=== PATIENT | male | born 1945 | race Caucasian/White ===

== ENCOUNTER 2024-02-26 13:38 | Observation (INO) | payer MEDICARE, OTHER, SELFPAY ==
[2024-02-26] VITALS (7 sets, daily range): BP systolic 103–196; BP diastolic 71–98; PULSE 65–75; RESP 18; TEMP 36.6–36.8; O2SAT 90–98; BMI 25.0; BMI 25.1
--- NOTE | 2024-02-26 14:06 | ED_ITS ---
Discharge Plan Disposition Patient Disposition: Admitted Condition: Fair Clinical Impressions Clinical Impression: Adult failure to thrive, Asthenia, Pleural effusion Discharge ED Provider: Lloyd Watson Adult HPI <DAWIT Anne - Last Filed: 02/26/24 18:12> General Chief complaint: Fall Stated complaint: AO 02/20/27, fell, broken ribs, wheezing Time Seen by Provider: 02/26/24 14:06 Mode of Arrival: Wheelchair Source of Information: Patient Limitations: No Limitations Description of Symptoms (Recalled from ER Triage Doc. by RN): Patient states he fell the other day and broke three ribs on the right side. States that they followed up at the [facility] and they said there was no need for a chest tube. Patient states that his home health physical therapy person suggested he come to the ER for evaluation because he had wheezing on the left side. Daughter at bedside states that she is afraid he is going to fall again and that the patient has Parkinson's and feels the patient needs to be admitted somewhere for rehab. History of Present Illness HPI narrative: Patient presents for evaluation of multiple complaints. Patient has past medical history of Parkinson's disease, dementia, stroke, CHF most recently had a fall from standing. He was seen and evaluated at the [facility] in [place] and according to family was only diagnosed with 3 left-sided rib fractures. He had a follow-up appointment with the [facility] yesterday and was not prescribed any type of pain medication. Apparently this is confusion as patient preferred not to take opiates given his comorbidities and according to patient's daughter was marked as a refusal. In any event patient is still having ongoing left-sided pain worse with inspiration. Physical therapy noted today that he heard wheezing on his lung exam. The original fall was onto gravel on the left side. He did not lose consciousness. Other than chest wall pain on the left side patient denies fever chills hemoptysis hematochezia melena nausea vomiting diarrhea. Related Data Home Medications Medication Instructions Recorded Confirmed aspirin 81 mg tablet,delayed 81 mg PO DAILY 02/27/24 02/27/24 release atorvastatin 80 mg tablet 80 mg PO DAILY 02/27/24 02/27/24 carbidopa 25 mg-levodopa 100 mg 1 tab PO TID 02/27/24 02/27/24 tablet cholecalciferol (vitamin D3) 25 25 mcg PO DAILY 02/27/24 02/27/24 mcg (1,000 unit) tablet donepezil 10 mg tablet 10 mg PO DAILY 02/27/24 02/27/24 doxepin 25 mg capsule 25 mg PO HS 02/27/24 02/27/24 duloxetine 60 mg capsule,delayed 60 mg PO DAILY 02/27/24 02/27/24 release empagliflozin 5 mg-metformin ER 1 tab PO DAILY 02/27/24 02/27/24 1,000 mg tablet,extended release 24 hr eplerenone 25 mg tablet (Inspra) 25 mg PO DAILY 02/27/24 02/27/24 finasteride 5 mg tablet 5 mg PO DAILY 02/27/24 02/27/24 loratadine 10 mg tablet 10 mg PO DAILYP PRN Allergy 02/27/24 02/27/24 Symptoms magnesium oxide 420 mg tablet 420 mg PO TID 02/27/24 02/27/24 melatonin 3 mg capsule 9 mg PO HS 02/27/24 02/27/24 metoprolol succinate 100 mg 50 mg PO DAILY 02/27/24 02/27/24 tablet,extended release 24 hr pantoprazole 20 mg tablet,delayed 20 mg PO DAILY 02/27/24 02/27/24 release pregabalin 100 mg capsule 100 mg PO HS 02/27/24 02/27/24 tamsulosin 0.4 mg capsule 0.4 mg PO BID 02/27/24 02/27/24 torsemide 20 mg tablet 20 mg PO DAILY 02/27/24 02/27/24 valproic acid 250 mg capsule 500 mg PO DAILY 02/27/24 02/27/24 valproic acid 250 mg capsule 750 mg PO HS 02/27/24 02/27/24 Allergies Allergy/AdvReac Type Severity Reaction Status Date / Time egg AdvReac Diarrhea Verified 02/26/24 20:05 [facility] <DAWIT Anne - Last Filed: 02/26/24 18:12> [facility] Disclaimer: The information contained in this section may have been updated after the patient was seen, as this information can be updated by other users. Medical History (Updated 02/26/24 @ 20:26 by Trini Carcamo RN) History of heart attack (~2000) CVA (cerebral vascular accident) Surgical History (Updated 02/26/24 @ 20:26 by Trini Carcamo, RN) History of open heart surgery Family History (Updated 02/26/24 @ 20:36 by Trini Carcamo, RN) Mother History of open heart surgery Father History of open heart surgery Social History (Updated 02/26/24 @ 20:38 by Trini Carcamo, RN) Smoking Status: Former smoker alcohol intake: never current occupational status: retired Travel in the last 8 weeks: None <DAWIT Anne - Last Filed: 02/26/24 18:12> ROS Obtained: Yes Systems reviewed as appropriate & no additional complaints except as documented Physical Exam <DAWIT Anne - Last Filed: 02/26/24 18:12> General General appearance: alert and in no apparent distress Head Head exam: atraumatic and normal inspection Eye Eye exam: Present normal appearance, PERRL and EOMI ENT ENT exam: Present normal exam, normal oropharynx and mucous membranes moist Neck Neck exam: Present normal inspection and full ROM; Absent trachea midline Chest Chest inspection: Present normal inspection, symmetric chest wall rise and tenderness (Tender to palpation in the left axillary line) Respiratory Respiratory exam: Present normal lung sounds bilaterally; Absent respiratory distress, wheezes, stridor or accessory muscle use Cardiovascular Cardiovascular exam: Present regular rate, normal rhythm, normal heart sounds, +S1 and +S2 Abdominal Exam Abdominal exam: Present soft and normal bowel sounds; Absent tenderness, guarding or rebound Extremities Exam Extremities exam: Present normal inspection and full ROM Back Exam Back exam: Present normal inspection, full ROM and tenderness (Left thoracic paraspinous); Absent vertebral tenderness Neurological Exam Neurological exam: Present alert, oriented X3, CN II-XII intact and other (Patient has resting and intention tremors.); Absent normal gait (Patient has a shuffling gait) Psychiatric Psychiatric exam: Present normal affect and normal mood Skin Skin exam: Present warm, dry and normal color Medical Decision Making <DAWIT Anne - Last Filed: 02/26/24 18:12> Medical Records Medical records reviewed: Yes I reviewed the patient's medical records. Luan Inquiry Pt receiving controlled substance: No Vital Signs: 02/26/24 13:41 02/26/24 14:00 02/26/24 14:11 Temperature 97.8 F Temperature Source Oral Pulse Rate 65 69 Pulse Rate [Radial] 65 Respiratory Rate 18 Blood Pressure 103/71 L Blood Pressure [Right Arm] 104/81 L Blood Pressure Mean Blood Pressure Mean [Right Arm] 88 Blood Pressure Source Blood Pressure Source [Right Arm] Automatic Cuff Blood Pressure Position Blood Pressure Position [Right Arm] Sitting 02 Sat by Pulse Oximetry 94 L 97 98 Oxygen Delivery Method Room Air 02/26/24 17:01 02/26/24 18:01 02/26/24 18:51 Temperature 97.8 F Temperature Source Oral Pulse Rate 69 Pulse Rate [Radial] Respiratory Rate 18 Blood Pressure 175/95 H 196/98 H 196/98 H Blood Pressure [Right Arm] Blood Pressure Mean 134 130 Blood Pressure Mean [Right Arm] Blood Pressure Source Automatic Cuff Blood Pressure Source [Right Arm] Blood Pressure Position Sitting Blood Pressure Position [Right Arm] 02 Sat by Pulse Oximetry Oxygen Delivery Method Room Air Lab Data Lab results reviewed: Yes I reviewed the patient's lab results. Lab Results 02/26/24 14:31: WBC 6.8, RBC 4.32 L, Hgb 12.8 L, Hct 39.7 L, MCV 92.0, MCH 29.5, MCHC 32.1, RDW 15.5, Plt Count 168, MPV 8.9, Neut % (Auto) 75.1, Lymph % (Auto) 13.8, [place] % (Auto) 7.1, Eos % (Auto) 3.3, Baso % (Auto) 0.7, Neut # (Auto) 5.1, Lymph # (Auto) 0.9, [place] # (Auto) 0.5, Eos # (Auto) 0.2, Baso # (Auto) 0.1, PT 10.6, INR 0.94, Sodium 139, Potassium 5.0, Chloride 104, Carbon Dioxide 30, Anion Gap 10.0, BUN 21 H, Creatinine 1.30 H, Estimated Creat Clear 51, Estimated GFR 53 L, Est GFR ( Amer) 64, Glucose 141 H, Calcium 9.3, Magnesium 1.7, Total Bilirubin 0.3, AST 37, ALT 16, Alkaline Phosphatase 70, Troponin I < 0.01, NT-Pro-B Natriuret Pep 803 H, Total Protein 6.5, Albumin 3.6, Globulin 2.9, Albumin/Globulin Ratio 1.2 02/26/24 17:31: Troponin I < 0.01 07/18/24 05:52 02/27/24 05:52 Orders (Tests/Meds): ED MEDICATIONS Generic Name Dose Route Start Last Admin Trade Name Reena PRN Reason Stop Dose Admin Aspirin 81 mg 02/27/24 09:00 Aspirin 81mg Chewable Tablet PO 03/28/24 08:59 DAILY CRISTIANA Atorvastatin Calcium 80 mg 02/26/24 21:00 02/26/24 22:23 Atorvastatin 40mg Tablet PO 03/27/24 20:59 80 mg HS CRISTIANA Administration Carbidopa/Levodopa 1 each 02/26/24 21:00 02/26/24 22:23 Carbidopa/Levodopa 25/100mg Tablet PO 03/27/24 20:59 1 each TID CRISTIANA Administration Donepezil HCl 10 mg 02/26/24 21:00 02/26/24 22:23 Donepezil 10mg Tab PO 03/27/24 20:59 10 mg HS CRISTIANA Administration Heparin Sodium (Porcine) 5,000 unit 02/27/24 09:00 Heparin Sodium 5,000 Unit/Ml Vial SQ 03/28/24 08:59 BID CRISTIANA Insulin Human Lispro 0 unit 02/26/24 21:00 02/26/24 22:36 Humalog 100 Units/Ml 10ml Vial (Ssi) SQ 03/27/24 20:59 2 unit ACHS CRISTIANA Administration Protocol Melatonin 10 mg 02/27/24 07:19 Melatonin 5mg Tablet PO 03/27/24 20:38 HSP PRN Sleep Metoprolol Succinate 50 mg 02/27/24 09:00 Metoprolol Succinate Xl 50mg Tablet PO 03/28/24 08:59 DAILY CRISTIANA Pregabalin 100 mg 02/26/24 21:00 02/26/24 22:24 Pregabalin 100mg Capsule PO 03/27/24 20:59 100 mg HS CRISTIANA Administration Primidone 100 mg 02/26/24 21:00 02/26/24 22:20 Primidone 50mg Tablet PO 03/27/24 20:59 Not Given HS CRISTIANA Tamsulosin HCl 0.4 mg 02/26/24 21:00 02/26/24 22:24 Tamsulosin 0.4mg Capsule PO 03/27/24 20:59 0.4 mg HS CRISTIANA Administration Torsemide 40 mg 02/27/24 09:00 Torsemide 20mg Tablet PO 03/28/24 08:59 DAILY CRISTIANA Discontinued Medications Generic Name Dose Route Start Last Admin Trade Name Freremigio PRN Reason Stop Dose Admin Acetaminophen 1,000 mg 02/26/24 14:16 02/26/24 14:22 Acetaminophen 1,000mg/100ml Vial IV 02/26/24 14:17 1,000 mg ONCE ONE Administration Sodium Chloride 500 mls @ 999 mls/hr 02/26/24 14:16 02/26/24 14:23 Sod Chlor 0.9% 1000ml Bag IV 02/26/24 14:46 Not Given .Q31M ONE Sodium Chloride 1,000 mls @ 999 mls/hr 02/26/24 14:30 02/26/24 14:23 Sod Chlor 0.9% 1000ml Bag IV 02/26/24 15:30 999 mls/hr .Q1H1M CRISTIANA Administration Iopamidol 185 ml 02/26/24 16:00 02/26/24 16:01 Iopamidol-370 (76%);100ml Bottle IV 02/26/24 16:01 185 ml ONCE ONE Administration Melatonin 10 mg 02/26/24 20:39 02/26/24 22:24 Melatonin 5mg Tablet PO 03/27/24 20:59 10 mg HS PRN Administration Sleep Sodium Chloride 50 ml 02/26/24 16:00 02/26/24 16:01 0.9 % Sodium Chloride 50 Ml Vial IV 02/26/24 16:01 50 ml ONCE ONE Administration Sodium Chloride 10 ml 02/26/24 16:00 02/26/24 16:01 Sodium Chloride 0.9% 10ml Syr (Rad Only) IV 02/26/24 16:01 10 ml ONCE ONE Administration ORDERS Category Date Time Status CT angio abdomen pelvis Stat Cat Scan 02/26/24 14:[address] angio chest - dissection Stat Cat Scan 02/26/24 14:[address] angio head Stat Cat Scan 02/26/24 14:[address] angio neck Stat Cat Scan 02/26/24 14:[address] cervical spine wo con Stat Cat Scan 02/26/24 14:[address] head/brain wo con Stat Cat Scan 02/26/24 14:[address] lumbar spine wo con Stat Cat Scan 02/26/24 14:[address] thoracic spine wo con Stat Cat Scan 02/26/24 14:18 Completed Pulmonology Consult [Consult to Pulmonology] [CONS] Cons 02/26/24 18:12 Active Routine BNP [NT Pro Brain Natriuretic Pep.] Stat Lab 02/26/24 14:31 Completed CBC w/Auto Diff [Complete Blood Count Auto Diff] Stat Lab 02/26/24 14:31 Completed CMP [Comprehensive Metabolic Panel] Stat Lab 02/26/24 14:31 Completed Complete Blood Count Auto Diff AMLAB Lab 02/27/24 05:52 Completed Comprehensive Metabolic Panel AMLAB Lab 02/27/24 05:52 Completed INR [Prothrombin Time INR] Stat Lab 02/26/24 14:31 Completed Magnesium AMLAB Lab 02/27/24 05:52 Completed Magnesium Stat Lab 02/26/24 14:31 Completed Trop I [Troponin I] Stat Lab 02/26/24 14:31 Completed Troponin I Q3H Lab 02/26/24 17:31 Completed Troponin I Q3H Lab 02/26/24 20:45 Completed CA echo doppler complete Routine Y 02/27/24 18:12 Completed Medical Decision Narrative: In summary patient is a 79-year-old male who presents to the emergency department for evaluation of fall, left-sided chest pain, failure to thrive. Patient is slightly hypotensive with a blood pressure of 104/81 but heart rate of 65 respiratory rate is 18 with an O2 sat of 94% on room air upon arrival, afebrile. Physical exam is remarkable for the stigmata of Parkinson's with resting and intention tremors, tenderness to palpation over the left chest wall worse with inspiration, breath sounds are clear and equal bilaterally to the bases without adventitious sounds.. Differential diagnosis includes failure to thrive, PE, hemothorax, lung contusion, occult bony fracture. Initial workup will be conducted with trauma scans, hematologic labs, twelve-lead EKG. Initial interventions include crystalloid bolus Tylenol. Initial workup reviewed by me shows that his hematologic labs are nonactionable however my informal interpretation of all of his imaging shows what appears to be a pleural effusion with some air bubbles but I do not appreciate any rib fractures and radiology confirms that they do not see any rib fractures either. Given this I had interactive discussion with Dr. Blanca about possibly doing a diagnostic paracentesis if warranted. He agreed to evaluate the patient for such in the morning. Given that I had interactive discussion with hospital medicine who agreed to admission for further evaluation. <Lloyd Watson MD - Last Filed: 02/27/24 08:51> Vital Signs: 02/26/24 13:41 02/26/24 14:00 02/26/24 14:11 Temperature 97.8 F Temperature Source Oral Pulse Rate 65 69 Pulse Rate [Radial] 65 Respiratory Rate 18 Blood Pressure 103/71 L Blood Pressure [Right Arm] 104/81 L Blood Pressure Mean Blood Pressure Mean [Right Arm] 88 Blood Pressure Source Blood Pressure Source [Right Arm] Automatic Cuff Blood Pressure Position Blood Pressure Position [Right Arm] Sitting 02 Sat by Pulse Oximetry 94 L 97 98 Oxygen Delivery Method Room Air 02/26/24 17:01 02/26/24 18:01 02/26/24 18:51 Temperature 97.8 F Temperature Source Oral Pulse Rate 69 Pulse Rate [Radial] Respiratory Rate 18 Blood Pressure 175/95 H 196/98 H 196/98 H Blood Pressure [Right Arm] Blood Pressure Mean 134 130 Blood Pressure Mean [Right Arm] Blood Pressure Source Automatic Cuff Blood Pressure Source [Right Arm] Blood Pressure Position Sitting Blood Pressure Position [Right Arm] 02 Sat by Pulse Oximetry Oxygen Delivery Method Room Air Lab Data Lab Results 02/26/24 14:31: WBC 6.8, RBC 4.32 L, Hgb 12.8 L, Hct 39.7 L, MCV 92.0, MCH 29.5, MCHC 32.1, RDW 15.5, Plt Count 168, MPV 8.9, Neut % (Auto) 75.1, Lymph % (Auto) 13.8, [place] % (Auto) 7.1, Eos % (Auto) 3.3, Baso % (Auto) 0.7, Neut # (Auto) 5.1, Lymph # (Auto) 0.9, [place] # (Auto) 0.5, Eos # (Auto) 0.2, Baso # (Auto) 0.1, PT 10.6, INR 0.94, Sodium 139, Potassium 5.0, Chloride 104, Carbon Dioxide 30, Anion Gap 10.0, BUN 21 H, Creatinine 1.30 H, Estimated Creat Clear 51, Estimated GFR 53 L, Est GFR ( Amer) 64, Glucose 141 H, Calcium 9.3, Magnesium 1.7, Total Bilirubin 0.3, AST 37, ALT 16, Alkaline Phosphatase 70, Troponin I < 0.01, NT-Pro-B Natriuret Pep 803 H, Total Protein 6.5, Albumin 3.6, Globulin 2.9, Albumin/Globulin Ratio 1.2 02/26/24 17:31: Troponin I < 0.01 Orders (Tests/Meds): ED MEDICATIONS Generic Name Dose Route Start Last Admin Trade Name Reena PRN Reason Stop Dose Admin Aspirin 81 mg 02/27/24 09:00 Aspirin 81mg Chewable Tablet PO 03/28/24 08:59 DAILY CRISTIANA Atorvastatin Calcium 80 mg 02/26/24 21:00 02/26/24 22:23 Atorvastatin 40mg Tablet PO 03/27/24 20:59 80 mg HS CRISTIANA Administration Carbidopa/Levodopa 1 each 02/26/24 21:00 02/26/24 22:23 Carbidopa/Levodopa 25/100mg Tablet PO 03/27/24 20:59 1 each TID CRISTINAA Administration Donepezil HCl 10 mg 02/26/24 21:00 02/26/24 22:23 Donepezil 10mg Tab PO 03/27/24 20:59 10 mg HS CRISTIANA Administration Heparin Sodium (Porcine) 5,000 unit 02/27/24 09:00 Heparin Sodium 5,000 Unit/Ml Vial SQ 03/28/24 08:59 BID CRISTIANA Insulin Human Lispro 0 unit 02/26/24 21:00 02/26/24 22:36 Humalog 100 Units/Ml 10ml Vial (Ssi) SQ 03/27/24 20:59 2 unit ACHS CRISTIANA Administration Protocol Melatonin 10 mg 02/27/24 07:19 Melatonin 5mg Tablet PO 03/27/24 20:38 HSP PRN Sleep Metoprolol Succinate 50 mg 02/27/24 09:00 Metoprolol Succinate Xl 50mg Tablet PO 03/28/24 08:59 DAILY CRISTIANA Pregabalin 100 mg 02/26/24 21:00 02/26/24 22:24 Pregabalin 100mg Capsule PO 03/27/24 20:59 100 mg HS CRISTIANA Administration Primidone 100 mg 02/26/24 21:00 02/26/24 22:20 Primidone 50mg Tablet PO 03/27/24 20:59 Not Given HS CRISTIANA Tamsulosin HCl 0.4 mg 02/26/24 21:00 02/26/24 22:24 Tamsulosin 0.4mg Capsule PO 03/27/24 20:59 0.4 mg HS CRISTIANA Administration Torsemide 40 mg 02/27/24 09:00 Torsemide 20mg Tablet PO 03/28/24 08:59 DAILY CRISTIANA Discontinued Medications Generic Name Dose Route Start Last Admin Trade Name Freq PRN Reason Stop Dose Admin Acetaminophen 1,000 mg 02/26/24 14:16 02/26/24 14:22 Acetaminophen 1,000mg/100ml Vial IV 02/26/24 14:17 1,000 mg ONCE ONE Administration Sodium Chloride 500 mls @ 999 mls/hr 02/26/24 14:16 02/26/24 14:23 Sod Chlor 0.9% 1000ml Bag IV 02/26/24 14:46 Not Given .Q31M ONE Sodium Chloride 1,000 mls @ 999 mls/hr 02/26/24 14:30 02/26/24 14:23 Sod Chlor 0.9% 1000ml Bag IV 02/26/24 15:30 999 mls/hr .Q1H1M CRISTIANA Administration Iopamidol 185 ml 02/26/24 16:00 02/26/24 16:01 Iopamidol-370 (76%);100ml Bottle IV 02/26/24 16:01 185 ml ONCE ONE Administration Melatonin 10 mg 02/26/24 20:39 02/26/24 22:24 Melatonin 5mg Tablet PO 03/27/24 20:59 10 mg HS PRN Administration Sleep Sodium Chloride 50 ml 02/26/24 16:00 02/26/24 16:01 0.9 % Sodium Chloride 50 Ml Vial IV 02/26/24 16:01 50 ml ONCE ONE Administration Sodium Chloride 10 ml 02/26/24 16:00 02/26/24 16:01 Sodium Chloride 0.9% 10ml Syr (Rad Only) IV 02/26/24 16:01 10 ml ONCE ONE Administration ORDERS Category Date Time Status CT angio abdomen pelvis Stat Cat Scan 02/26/24 14:[address] angio chest - dissection Stat Cat Scan 02/26/24 14:[address] angio head Stat Cat Scan 02/26/24 14:[address] angio neck Stat Cat Scan 02/26/24 14:[address] cervical spine wo con Stat Cat Scan 02/26/24 14:[address] head/brain wo con Stat Cat Scan 02/26/24 14:[address] lumbar spine wo con Stat Cat Scan 02/26/24 14:[address] thoracic spine wo con Stat Cat Scan 02/26/24 14:18 Completed Pulmonology Consult [Consult to Pulmonology] [CONS] Cons 02/26/24 18:12 Active Routine BNP [NT Pro Brain Natriuretic Pep.] Stat Lab 02/26/24 14:31 Completed CBC w/Auto Diff [Complete Blood Count Auto Diff] Stat Lab 02/26/24 14:31 Completed CMP [Comprehensive Metabolic Panel] Stat Lab 02/26/24 14:31 Completed Complete Blood Count Auto Diff AMLAB Lab 02/27/24 05:52 Completed Comprehensive Metabolic Panel AMLAB Lab 02/27/24 05:52 Completed INR [Prothrombin Time INR] Stat Lab 02/26/24 14:31 Completed Magnesium AMLAB Lab 02/27/24 05:52 Completed Magnesium Stat Lab 02/26/24 14:31 Completed Trop I [Troponin I] Stat Lab 02/26/24 14:31 Completed Troponin I Q3H Lab 02/26/24 17:31 Completed Troponin I Q3H Lab 02/26/24 20:45 Completed CA echo doppler complete Routine Y 02/27/24 18:12 Completed Medical Decision Narrative: In summary patient is a 79-year-old male who presents to the emergency department for evaluation of fall, left-sided chest pain, failure to thrive. Patient is slightly hypotensive with a blood pressure of 104/81 but heart rate of 65 respiratory rate is 18 with an O2 sat of 94% on room air upon arrival, afebrile. Physical exam is remarkable for the stigmata of Parkinson's with resting and intention tremors, tenderness to palpation over the left chest wall worse with inspiration, breath sounds are clear and equal bilaterally to the bases without adventitious sounds.. Differential diagnosis includes failure to thrive, PE, hemothorax, lung contusion, occult bony fracture. Initial workup will be conducted with trauma scans, hematologic labs, twelve-lead EKG. Initial interventions include crystalloid bolus Tylenol. Initial workup reviewed by me shows that his hematologic labs are nonactionable however my informal interpretation of all of his imaging shows what appears to be a pleural effusion with some air bubbles but I do not appreciate any rib fractures and radiology confirms that they do not see any rib fractures either. Given this I had interactive discussion with Dr. Blanca about possibly doing a diagnostic paracentesis if warranted. He agreed to evaluate the patient for such in the morning. Given that I had interactive discussion with hospital medicine who agreed to admission for further evaluation. I was consulted by the VIJAY, and we discussed the complexity of the problems being addressed.I approved the treatment and management plan for this patient?s care in the Emergency Department, thus performing a substantive portion of the medical decision making.Signed, Lloyd Watson MD Critical Care <DAWIT Anne - Last Filed: 02/26/24 18:12> Critical Care Time Critical Care Time: No
--- NOTE | 2024-02-26 14:18 | CT_ITS ---
FINAL REPORT TECHNIQUE: Thin section axial images were obtained through the thoracic spine without contrast. Sagittal and coronal images were obtained from the axial data. CLINICAL HISTORY: trauma, critical injury suspected COMPARISON: None FINDINGS: There is a compression deformity of T4 favored to be chronic. There are mild compression deformities of T8 and T9 also likely chronic. There is multilevel degenerative disc disease. No acute fracture. A left pleural effusion is noted. There is no acute paraspinal abnormality. IMPRESSION: No acute abnormality. Multilevel degenerative disc disease. Chronic compression deformities. Reviewed, Interpreted and Dictated by Chiquis Conde MD Transcribed by Nicky Chin Authenticated and [facility]
--- NOTE | 2024-02-26 14:18 | CT_ITS ---
FINAL REPORT TECHNIQUE: Thin section axial images were obtained from skull base to vertex without contrast. Coronal reconstruction images were obtained from the axial data. Exam was performed using dose reduction technique. CLINICAL HISTORY: trauma, critical injury suspected FINDINGS: There is age-appropriate atrophy. There is no mass effect or midline shift. There is no intracranial hemorrhage. There is no hydrocephalus. Periventricular low density is likely related to changes of chronic small vessel ischemia. There are multiple areas of encephalomalacia consistent with old infarcts. The posterior fossa is without acute abnormality. The soft tissues are without acute abnormality. No acute osseous abnormality is identified. IMPRESSION: No acute intracranial hemorrhage. Atrophy and changes suggesting chronic small vessel ischemia. Multiple old infarcts. Reviewed, Interpreted and Dictated by Chiquis Conde MD Transcribed by Mitzi Snyder Authenticated and . [facility]
--- NOTE | 2024-02-26 14:18 | CT_ITS ---
FINAL REPORT TECHNIQUE: Pre-and postcontrast images of the abdomen and pelvis were performed by computed tomography. Extensive 3-D reconstruction images were performed. A CTA was performed. This study was performed with techniques to keep radiation doses as low as reasonably achievable (ALARA). Individualized dose reduction techniques using automated exposure control or adjustment of mA and/or kV according to the patient''s size were employed. CLINICAL HISTORY: trauma, critical injury suspected COMPARISON: None FINDINGS: ABDOMEN AND PELVIS:: The liver, spleen, pancreas, and adrenal glands are unremarkable. There are gallstones present in the gallbladder. There are hypodense bilateral renal lesions, favor renal cysts. The appendix is not visualized. There are no secondary signs of appendicitis. No bowel abnormality is identified. No free fluid is visualized. CTA: The overall examination is somewhat limited in the abdomen and pelvis secondary to the bolus timing. The abdominal aorta is enlarged, with an intrarenal abdominal aortic aneurysm measuring 3.6 cm in diameter. No gross evidence of a dissection is seen. There is no significant stenosis or calcification. The renal arteries are not well-visualized but are bilaterally patent. IMPRESSION: The timing of the bolus makes evaluation of a dissection somewhat difficult but no gross dissection is seen. An infrarenal 3.6 cm abdominal aortic aneurysm is present. No gross vascular abnormality is noted, and the major abdominal vessels are all patent. Gallstones are present in the gallbladder. Reviewed, Interpreted and Dictated by Chiquis Conde MD Transcribed by Katya Dugan Authenticated and . [facility]
--- NOTE | 2024-02-26 14:18 | CT_ITS ---
FINAL REPORT TECHNIQUE: Axial images were performed through the lumbar spine by computed tomography. Sagittal reconstruction images were also performed. This study was performed with techniques to keep radiation doses as low as reasonably achievable, (ALARA). Individualized dose reduction techniques using automated exposure control or adjustment of mA and/or kV according to the patient''s size were employed. CLINICAL HISTORY: trauma, critical injury suspected COMPARISON: None FINDINGS: No acute fracture. No abnormal alignment. There is advanced multilevel degenerative disc disease. Vertebral body heights are preserved. No acute paraspinal soft tissue abnormality. IMPRESSION: No acute fracture. Reviewed, Interpreted and Dictated by Chiquis Conde MD Transcribed by DAWIT Phelan Authenticated and [facility]
--- NOTE | 2024-02-26 14:18 | CT_ITS ---
FINAL REPORT TECHNIQUE: Thin section axial images were obtained through the cervical spine without contrast. Multiplanar reconstruction images were obtained from the axial data. Exam was performed using dose reduction techniques. CLINICAL HISTORY: trauma, critical injury suspected COMPARISON: None FINDINGS: There is no acute fracture. There is no evidence of unilateral or bilateral facet lock. The craniocervical junction is intact. There is multilevel degenerative disc disease, most pronounced at C5-6 and C6-7.. No acute paraspinal abnormality is identified. IMPRESSION: No acute fracture. Degenerative disc disease. Reviewed, Interpreted and Dictated by Chiquis Conde MD Transcribed by Nicky Chin Authenticated and [facility]
--- NOTE | 2024-02-26 14:18 | CT_ITS ---
FINAL REPORT TECHNIQUE: Axial imaging of the chest is obtained after the administration of contrast. 3-D MIP reformatted images were also obtained and reviewed per PE protocol. CLINICAL HISTORY: trauma, critical injury suspected COMPARISON: None FINDINGS: The pulmonary arteries are well filled. There is no evidence of pulmonary embolus. There is no aortic dissection or intimal flap. There is dilation of the ascending thoracic aorta, measuring 4.2 cm in diameter. There is an aberrant right subclavian artery, a normal variant. The heart is borderline in size. There is no mediastinal, hilar, or axillary lymphadenopathy. Changes of emphysema are present. Bilateral lower lobe atelectasis is also present. A moderate size left pleural effusion is noted. There is a focus of air in or adjacent to the effusion, which could represent a small hydropneumothorax or a bulla in the left lower lobe, especially given the lack of a rib fracture. No acute osseous abnormality. Specifically, no rib fracture is identified. IMPRESSION: No evidence of pulmonary embolism or aortic dissection. The ascending thoracic aorta is dilated to 4.2 cm. There is a moderate left pleural effusion with an air collection within or adjacent to the effusion. While this could represent a small hydropneumothorax, given that no rib fractures are present may also represent a bulla in the left lower lobe immediately anterior to the pleural fluid collection. Reviewed, Interpreted and Dictated by Chiquis Conde MD Transcribed by Katya Dugan Authenticated and [facility]
--- NOTE | 2024-02-26 14:18 | CT_ITS ---
FINAL REPORT TECHNIQUE: Thin section axial images are obtained through the brain after intravenous contrast injection. Multiplanar reconstructions were obtained from the axial data. Exam was performed using dose reduction technique per the ALARA principal. CLINICAL HISTORY: trauma, critical injury suspected COMPARISON: None FINDINGS: The intracerebral portions of the carotid arteries are patent. The anterior and middle cerebral arteries are patent. The basilar artery is patent. The left vertebral artery is dominant. The posterior cerebral arteries arise from the basilar artery. [place] is intact. There is no significant stenosis, aneurysm, or AVM. IMPRESSION: Unremarkable CT angiogram of the intracerebral vasculature. Reviewed, Interpreted and Dictated by Chiquis Conde MD Transcribed by DAWTI Phelan Authenticated and [facility]
--- NOTE | 2024-02-26 14:18 | CT_ITS ---
FINAL REPORT TECHNIQUE: Thin-section axial CT with IV contrast supplemented with multi planar reconstruction under CT angiogram protocol was performed of the neck. This study was performed technique to keep radiation doses as low as reasonably achievable, (ALARA). NASCET criteria was utilized during interpretation. CLINICAL HISTORY: trauma, critical injury suspected COMPARISON: None FINDINGS: Aortic arch: There is an aberrant right subclavian artery. Arch shows no significant narrowing. Great vessel origins are widely patent. Right carotid: No significant stenosis is seen at the cervical common or internal carotid artery. Left carotid: There is calcified plaque at the carotid bulb and proximal right ICA. No significant stenosis, vessel are patent to the skull base. Vertebrals: The left vertebral artery is small, likely congenital. No significant stenosis is present. IMPRESSION: No evidence of significant stenosis or major branch occlusion. Reviewed, Interpreted and Dictated by Chiquis Conde MD Transcribed by DAWIT Phelan Authenticated and [facility]
--- NOTE | 2024-02-26 14:18 | PC.NURSE ---
Emerita in [facility] notified that pt and family is wanting to speak about placement for rehab
[2024-02-26] MEDS: ACETAMINOPHEN 1,000MG/100ML VIAL 1000 MG IV (14:22)
[2024-02-26] MEDS: 0.9 % SODIUM CHLORIDE 1000ML 1,000 ML 999 ML IV (14:23)
--- NOTE | 2024-02-26 14:32 | ECG_ITS ---
APPROVED REPORT Exam: Resting ECG HR:63 bpm ECG Measurements Heart Rate 63 AXES MO 176 P 78 QRSd 95 QRS -70 QT 418 T 106 QTc 425 Conclusion SINUS RHYTHM WITH OCCASIONAL SUPRAVENTRICULAR PREMATURE COMPLEXES LOW QRS VOLTAGE IN PRECORDIAL LEADS [QRS DEFLECTION < 1.0 mV IN CHEST LEADS] PATTERN CONSISTENT WITH PULMONARY DISEASE POSSIBLE RIGHT VENTRICULAR CONDUCTION DELAY [RSR (QR) IN V1/V2] ABNORMAL ECG Electronically signed by : STEF MORROW, 02/27/2024 04:35:06
[2024-02-26 14:41] LABS: Basophils # 0.1 K/mm3 (0-0.2); Basophils % 0.7 % (0.1-2.0); Eosinophils # 0.2 K/mm3 (0.0-0.4); Eosinophils % 3.3 % (0.1-12.0); Hematocrit 39.7 % (42.0-52.0); Hemoglobin 12.8 g/dL (14.1-18.0); Lymphocytes # 0.9 K/mm3 (0.7-4.5); Lymphocytes % 13.8 % (10-50); Mean Corpuscular HGB Conc 32.1 g/dL (31.8-35.4); Mean Corpuscular Hemoglobin 29.5 pg (27.0-31.2); Mean Platelet Volume 8.9 fl (7.4-10.4); Monocytes # 0.5 K/mm3 (0.1-1.0); Monocytes % 7.1 % (1.7-9.3); Neutrophils # 5.1 K/mm3 (1.8-7.8); Neutrophils % 75.1 % (37.0-80.0); Platelet Count 168 K/mm3 (142-424); Red Blood Count 4.32 M/mm3 (4.60-6.20); Red Cell Distribution Width 15.5 % (11.5-17.5); White Blood Count 6.8 K/mm3 (4.8-10.8)
--- NOTE | 2024-02-26 14:41 | PC.NURSE ---
DAYANA Felder at discussing rehab with pt and family
[2024-02-26 14:44] LABS: Chloride 104 mmol/L (98-107); Sodium 139 mmol/L (136-145)
[2024-02-26 14:46] LABS: Alanine Aminotransferase 16 U/L (12-78); Blood Urea Nitrogen 21 mg/dl (9-20); Creatinine Clearance Estimated 51 mL/min (50-200); Estimated Glomerular Filt Rate 53 ml/min (>60); GFR (African American) 64 ML/MIN (>60)
[2024-02-26 14:47] LABS: Albumin Level 3.6 g/dl (3.5-5.0); Albumin/Globulin Ratio 1.2 (1.1-1.8); Alkaline Phosphatase 70 U/L (38-126); Aspartate Amino Transferase 37 U/L (17-59); Bilirubin,Total 0.3 mg/dl (0.2-1.3); Calcium 9.3 mg/dl (8.4-10.2); Carbon Dioxide 30 mmol/L (22.0-30.0); Globulin 2.9 g/dL (1.3-3.2); Glucose 141 mg/dl (74-100); Magnesium 1.7 mg/dl (1.6-2.3); Total Protein,Serum 6.5 g/dl (6.3-8.2)
[2024-02-26 14:49] LABS: INR 0.94 (0.9-1.1); Prothrombin Time 10.6 seconds (10.1-12.5)
[2024-02-26 14:57] LABS: NT Pro Brain Natriuretic Pep. 803 pg/mL (0-450)
[2024-02-26 15:02] LABS: Troponin I < 0.01 ng/ml (0.00-0.034)
--- NOTE | 2024-02-26 15:02 | PC.NURSE ---
PT aware of evaluation
--- NOTE | 2024-02-26 15:33 | CARE MANAGER ---
Addendum entered by Sunitha Tillman 02/28/24 13:55: I spoke w/ patient's daughter this AM regarding [facility] facility: they reached out to daughter and stated they should have a bed for patient within the next two weeks. Addendum entered by Sunitha Tillman 02/27/24 15:49: Per patient/family request information has been faxed to [facility] in [place]. I have also left a voicemail w/ Domi Ricky Hu. Addendum entered by Sunitha Tillman 02/27/24 14:52: The plan for this patient is to discharge home w/ family today while awaiting LTC. Patient and family are both agreeable to this plan. I will update patient's Hepatology Physician at [facility] (Jay) regarding situation and ask that he continue to follow up w/ patient and discharge planning. I have provided patient and his family w/ my name and number for future questions. I am still waiting for a call back from [facility] at this time. I have provided patient/family with a list of facilities w/ [facility]. Addendum entered by Sunitha Tillman 02/27/24 08:45: Patient information has been faxed to [facility] per daughter's request. Addendum entered by Caroline Gallardo RN 02/26/24 16:02: Discussed with EVIE Lee, patient's status. He states in order to qualify for short term rehab he needs a qualifying stay same as Medicare guidelines. The [facility] can cover a LTC facility. The patient and family don't really want LTC but understand this is an option and does not mean he has to stay there forever if he chooses not to. I spoke with the provider as well at [facility]. She states they offered admission to patient yesterday due to hemo pneumothorax and at that time he did not want to be admitted (earlier daughter and patient state he did not refuse admit). Called to ER to verify they were aware of what the [facility] saw yesterday. Discussed with Jay the daughter's concerns for the caregiver from [facility] and the inability to help him pull his pants up. EVIE Molina spoke with patient's daughter and explained that he would need to go LTC for [place] to pay, but that we would wait until the ER had finished working him up to see if he needed to be admitted. If he does we will discuss discharge plans in the morning and if he isn't admitted we will touch base with them over the phone. Daughter/patient agreeable. Original Note: Went to ER and spoke with patient and daughter. Patient currently resides with daughter and [facility] stays with patient while daughter is at work. His normal caregiver at [facility] is out due to a surgery and the one filling in is unable to lift or help patient much. Patient has been falling recently. He has fractured ribs and hx of Parkinson's. He was recently at [facility]. He also receives home health. The daughter and patient agree that he needs short term rehab. We discussed that he doesn't have a reason to be admitted to the hospital. He is wanting the [place] to pay for this as Medicare will not be able to. [facility] has contracts with different short term rehabs. They have spoke with the social welfare research worker on his [employer] team 16, Jay Barry. He instructed them to take the patient to whatever ER they wished as his home health physical therapist recommended patient needing short term rehab. I have left a message for Jay Barry and will fax PT/OT evals to them. The daughter is also reaching out to him. The plan is to take him home and stay in touch with [facility] as they should be able to help with placement. MARIPOSA Desai
--- NOTE | 2024-02-26 15:38 | HMH.PTEV ---
Physical Therapy Evaluation Rehab PT IP Evaluation Start: 02/26/24 15:02 Freq: ONCE Status: Active Protocol: Document 02/26/24 15:25 JAMIL (Rec: 02/26/24 15:36 JAMIL [email or web address]) Subjective/History History History Per H&P: Patient presents for evaluation of multiple complaints. Patient has past medical history of Parkinson's disease, dementia, stroke, CHF most recently had a fall from standing. He was seen and evaluated at the [facility] in [place] and according to family was only diagnosed with 3 left-sided rib fractures. He had a follow-up appointment with the [facility] yesterday and was not prescribed any type of pain medication. Apparently this is confusion as patient preferred not to take opiates given his comorbidities and according to patient's daughter was marked as a refusal. In any event patient is still having ongoing left- sided pain worse with inspiration. Physical therapy noted today that he heard wheezing on his lung exam. The original fall was onto gravel on the left side. He did not lose consciousness. Other than chest wall pain on the left side patient denies fever chills hemoptysis hematochezia melena nausea vomiting diarrhea. Subjective Subjective PLOF per pt report: Lives with family in a single-story home with ramped enterance. Pt uses a rollator for ambulation and usually requires supervision with mobility d/t reported history of frequent falls and balance deficits. Pt 's daughter has been taking off of her work to care for her father/pt. Pt usually has 2 caregivers that rotate care but one is on leave for a surgery and the other is not able to provide physical assistance. Pt's daughter reports pt would be home alone sometimes d/t this. New diagnosis of cancer in past 12 No months? Rehab PT IP Eval Objective Appearance Patient Behavior Appropriate,Cooperative Patient Orientation Person Difficulty following instructions none Speech Pattern Clear Ambulation Patient Able to Ambulate Yes Ambulation Observation IP General Gait Pattern Observation Wide Based Gait Ambulation Distance (feet) 20 Ambulation Assistive Device Rolling Walker Ambulation Ability Minimal x 1 (25% assist) Balance Ability to Arise Able, uses arms to help Sitting Balance Steady, safe Standing Balance Steady, wide stance Transfers Bed Transfer Ability Minimal x 1 (25% assist) Sit to Stand Bed Transfer Ability Contact Guard/Hand Hold Rehab PT IP prob,goals,plan Problems Date of Evaluation: 02/26/24 PT IP Problems Bed Mobility,Transfers,Gait, Balance,Self care,Safety Rehab Potential Rehab Potential Good Equipment Needs Assistive Devices Rolling / Wheeled Walker Plan PT Intervention Plan Bed Mobility,Transfers,Gait, Balance,Self care,Safety, Therapeutic Exercise Other Intervention Plan 1-2 times PT Plan Frequency Daily Duration LOS Discharge Goals Bed Transfer Ability Contact Guard/Hand Hold Sit to Stand Chair Transfer Ability Supervision/Stand by Ambulation Assistive Device Rolling Walker Ambulation Distance (feet) 30 Discharge Plan PT Discharge Plan Initial physical therapy evaluation performed. Patient presents below baseline at this time in functional mobility, transfers, and strength. Pt required Min A for bed mobility (supine<> sitting) and Min A for steadying during ambulation with RW. Pt not safe to return home at this time d/t current level of functional mobility and lack of 24/7 care (per pt' s daughter's report) being available to pt. PT feels that pt needs 24/7 assistance to prevent falls when performing functional mobility around the home. PT recommending short- term rehabilitation stay upon d/c from [facility]. If pt is unable to attend rehab, pt may return home with 24/7 care and PT services. Eval Complexity Eval Charge Codes 08998 - Moderate Complexity PHYSICIAN CERTIFICATION: I certify the specified therapy services for Sharad Mckeon are required, authorized, and reviewed every 30 days.
--- NOTE | 2024-02-26 15:41 | HMH.OTEV ---
OT Inpatient Evaluation Rehab OT IP Evaluation Start: 02/26/24 15:02 Freq: ONCE Status: Active Protocol: Document 02/26/24 15:37 FLORECITABRYCE (Rec: 02/26/24 15:41 MARY ALICE [id number]) Rehab OT IP Assessment Subjective History Patient presents for evaluation of multiple complaints. Patient has past medical history of Parkinson's disease, dementia, stroke, CHF most recently had a fall from standing. He was seen and evaluated at the [facility] in [place] and according to family was only diagnosed with 3 left-sided rib fractures. He had a follow-up appointment with the [facility] yesterday and was not prescribed any type of pain medication. Apparently this is confusion as patient preferred not to take opiates given his comorbidities and according to patient's daughter was marked as a refusal. In any event patient is still having ongoing left- sided pain worse with inspiration. Physical therapy noted today that he heard wheezing on his lung exam. The original fall was onto gravel on the left side. He did not lose consciousness. Other than chest wall pain on the left side patient denies fever chills hemoptysis hematochezia melena nausea vomiting diarrhea. Patient lives at home in [address] with family. Family is unable to provide care for patient 04/03 at this time. Patient has a hx of falling and would benefit from skilled rehabilitation services prior to returning home. Subjective I can get up. Assisted Patient on safety awareness to complete bed mobiltiy from supine->sit @ EOB->stand->maneuver throughout facility with usage of RW ~20ft. Patient required Min A due to unsteadiness balance. Assisted Patient back to bed with Min A. Objective Patient Orientation Person,Name Right Upper Extremity Gross ROM WFL Left Upper Extremity Gross ROM WFL Bed Mobility bed mobility - supine/sit Assist Level Minimal x 1 (25% assist) Transfer Training Sit/Stand/Pivot Transfer Assist Level Minimal x 1 (25% assist) Chair Transfer Ability Minimal x 1 (25% assist) Chair Transfer Technique Sit to/from Ambulatory Chair Transfer Assistive Devices Rolling Walker Lower Body Dressing Ability Minimal Assistance Rehab OT IP prob,goals,plan Problems Date of Evaluation: 02/26/24 OT IP Problems Bed Mobility,Transfers,Balance ,Self care,Safety Rehab Potential Rehab Potential Good Equipment Needs Assistive Devices Rolling / Wheeled Walker Plan OT intervention Plan Bed Mobility,Transfers,Balance ,Self care,Safety,Therapeutic Exercise OT Plan Frequency Daily Duration LOS Discharge Goals Bed Mobility Ability Assistance x1 Sit to Stand Chair Transfer Ability Contact Guard/Hand Hold Chair Transfer Ability Contact Guard/Hand Hold Chair Transfer Technique Sit to/from Ambulatory Chair Transfer Assistive Devices Rolling Walker Lower Body Dressing Ability Contact Guard Discharge Plan OT Discharge Plan Recommend placement at this time. Continue OT IP services til appropriate d/c. Eval Complexity Eval Charge Codes 36259 - Low Complexity PHYSICIAN CERTIFICATION: I certify the specified therapy services for Sharad Mckeon are required, authorized, and reviewed every 30 days.
[2024-02-26] MEDS: SODIUM CHLORIDE 0.9% 10ML SYR (RAD ONLY) 10 ML IV (16:01)
[2024-02-26] MEDS: IOPAMIDOL-370 (76%);100ML BOTTLE 185 ML IV (16:01)
[2024-02-26] MEDS: 0.9 % SODIUM CHLORIDE 50 ML VIAL IV (16:01)
--- NOTE | 2024-02-26 17:36 | PC.NURSE ---
Rounded on patient. No needs at this time. Resting in bed.
--- NOTE | 2024-02-26 18:17 | PC.NURSE ---
notified house for admission to 2nd floor per hospitalist.
[2024-02-26 18:25] LABS: Troponin I < 0.01 ng/ml (0.00-0.034)
--- NOTE | 2024-02-26 18:34 | PC.NURSE ---
Report given to MARIPOSA Clinton on Med Surg.
--- NOTE | 2024-02-26 18:53 | PC.NURSE ---
pt arrived to floor via wheel chair at this time
--- NOTE | 2024-02-26 19:34 | EXP.HP ---
History of Present Illness *Admission Date: 02/26/24 *Reason for visit:: Fall *History of present illness: Sharad Mckeon is an 79-year-old male past medical history significant for HTN, CAD status post CABG in 2001, CVA with right-sided deficits, CHF who presents emergency room today with complaints of mechanical fall. Mr. Mckeon has had a few falls over the last several weeks. Most recently fell a few days ago onto the left side and has been having some left-sided rib pain. Did not hit his head at that time, denies any LOC, denies neck or back pain. Tells me that he went to the MD and they diagnosed him with 3 left-sided rib fractures. Patient lives at home with his daughter. Tells me that he has to use a rollator walker to get around. Reports he tripped and fell a couple of days ago, did not lose consciousness, no dizziness or lightheadedness noted before the fall. Left-sided rib pain is worse with inspiration. Patient denies any fever, cough, chest pain, abdominal pain. No focal neurodeficits. No recent weight gain or weight loss, no swelling in his legs or feet. Daughter was concerned about patient returning home, reports that he has been getting weaker over the last several weeks and has been unable to complete activities of daily living. Denies tobacco use, alcohol use, illicit drug use. Does not take any blood thinners. Does take a 81 mg aspirin daily. Lab work in the ER showed an elevated BUN and creatinine of 21 and 1.3. BNP elevated to 803. CTA of the chest shows a moderate left pleural effusion. All other imaging was nonactionable.Dr. Blanca was consulted, will see the patient in consult tomorrow to discuss doing a diagnostic thoracentesis if needed. He will be noted to the hospitalist service for severe impaired mobility, adult failure to thrive, and a new pleural effusion. [facility] Disclaimer: The information contained in this section may have been updated after the patient was seen, as this information can be updated by other users. Medical History (Updated 02/27/24 @ 12:11 by Sav Trujillo MD) Dyspnea on exertion History of heart attack (~2000) CVA (cerebral vascular accident) Surgical History (Updated 02/26/24 @ 20:26 by Trini Carcamo RN) History of open heart surgery Family History (Updated 02/26/24 @ 20:36 by Trini Carcamo RN) Mother History of open heart surgery Father History of open heart surgery Social History (Updated 02/26/24 @ 20:38 by Trini Carcamo RN) Smoking Status: Former smoker alcohol intake: never current occupational status: retired Travel in the last 8 weeks: None Meds Home Medications and Allergies Home Medications Medication Instructions Recorded Confirmed Type aspirin 81 mg tablet,delayed 81 mg PO DAILY 02/27/24 02/27/24 History release atorvastatin 80 mg tablet 80 mg PO DAILY 02/27/24 02/27/24 History carbidopa 25 mg-levodopa 100 mg 1 tab PO TID 02/27/24 02/27/24 History tablet cholecalciferol (vitamin D3) 25 25 mcg PO DAILY 02/27/24 02/27/24 History mcg (1,000 unit) tablet donepezil 10 mg tablet 10 mg PO DAILY 02/27/24 02/27/24 History doxepin 25 mg capsule 25 mg PO HS 02/27/24 02/27/24 History duloxetine 60 mg capsule,delayed 60 mg PO DAILY 02/27/24 02/27/24 History release empagliflozin 5 mg-metformin ER 1 tab PO DAILY 02/27/24 02/27/24 History 1,000 mg tablet,extended release 24 hr eplerenone 25 mg tablet (Inspra) 25 mg PO DAILY 02/27/24 02/27/24 History finasteride 5 mg tablet 5 mg PO DAILY 02/27/24 02/27/24 History hydrocodone 5 mg-acetaminophen 325 1 tab PO Q8H PRN pain 3 days #9 02/27/24 Rx mg tablet tabs loratadine 10 mg tablet 10 mg PO DAILYP PRN Allergy 02/27/24 02/27/24 History Symptoms magnesium oxide 420 mg tablet 420 mg PO TID 02/27/24 02/27/24 History melatonin 3 mg capsule 9 mg PO HS 02/27/24 02/27/24 History metoprolol succinate 100 mg 50 mg PO DAILY 02/27/24 02/27/24 History tablet,extended release 24 hr pantoprazole 20 mg tablet,delayed 20 mg PO DAILY 02/27/24 02/27/24 History release pregabalin 100 mg capsule 100 mg PO HS 02/27/24 02/27/24 History primidone 50 mg tablet 75 mg PO HS 02/27/24 02/27/24 History tamsulosin 0.4 mg capsule 0.4 mg PO BID 02/27/24 02/27/24 History torsemide 20 mg tablet 20 mg PO DAILY 02/27/24 02/27/24 History valproic acid 250 mg capsule 500 mg PO DAILY 02/27/24 02/27/24 History valproic acid 250 mg capsule 750 mg PO HS 02/27/24 02/27/24 History New Prescriptions to Start Prescriptions: hydrocodone-acetaminophen Derek Hines Allergies Allergy/AdvReac Type Severity Reaction Status Date / Time egg AdvReac Diarrhea Verified 02/26/24 20:05 Exam Data for Last 24 hours Vital signs and Labs for Last 24 Hours: Temp Pulse Resp BP Pulse Ox O2 Del Method 98.2 F 75 18 170/98 H 90 L Room Air 02/26/24 19:06 02/26/24 19:06 02/26/24 19:06 02/26/24 19:06 02/26/24 19:06 02/26/24 19:06 Laboratory Results - last 24 hr 02/26/24 14:31: WBC 6.8, RBC 4.32 L, Hgb 12.8 L, Hct 39.7 L, MCV 92.0, MCH 29.5, MCHC 32.1, RDW 15.5, Plt Count 168, MPV 8.9, Neut % (Auto) 75.1, Lymph % (Auto) 13.8, [place] % (Auto) 7.1, Eos % (Auto) 3.3, Baso % (Auto) 0.7, Neut # (Auto) 5.1, Lymph # (Auto) 0.9, [place] # (Auto) 0.5, Eos # (Auto) 0.2, Baso # (Auto) 0.1, PT 10.6, INR 0.94, Sodium 139, Potassium 5.0, Chloride 104, Carbon Dioxide 30, Anion Gap 10.0, BUN 21 H, Creatinine 1.30 H, Estimated Creat Clear 51, Estimated GFR 53 L, Est GFR ( Amer) 64, Glucose 141 H, Calcium 9.3, Magnesium 1.7, Total Bilirubin 0.3, AST 37, ALT 16, Alkaline Phosphatase 70, Troponin I < 0.01, NT-Pro-B Natriuret Pep 803 H, Total Protein 6.5, Albumin 3.6, Globulin 2.9, Albumin/Globulin Ratio 1.2 02/26/24 17:31: Troponin I < 0.01 I & O for Last 24 hours: Intake & Output 02/23/24 02/24/24 02/25/24 02/26/24 23:59 23:59 23:59 23:59 Weight 79.464 kg *Routine HEENT Exam Head: Present normocephalic and atraumatic Eye: Present EOMI and PERRL ENT: Present mucous membranes moist *Routine Neck Exam Neck: Present supple and full ROM *Routine Respiratory Exam Respiratory: Present CTA bilaterally *Routine Cardiovascular Exam Cardiovascular: Present RRR, Normal S1 and Normal S2 *Routine Abdominal Exam Abdominal: Present soft and normoactive bowel sounds *Routine Rectal Exam Rectal:: deferred *Routine Genitalia Exam Genitalia:: deferred *Routine Extremities Exam Extremities: Present pulses intact and normal capillary refill *Routine Skin Exam Skin: Present intact *Routine Neurological Exam Neurological: Present alert, oriented X3 and moving all extremities Assessment and Plan *Assessment and plan (1) CAD (coronary artery disease): Status: Acute Category: Medical Code(s): I25.10 - Atherosclerotic heart disease of [place] coronary artery without angina pectoris (2) CHF (congestive heart failure): Status: Acute Category: Medical Code(s): I50.9 - Heart failure, unspecified (3) Pleural effusion: Status: Acute Category: Medical Code(s): J90 - Pleural effusion, not elsewhere classified (4) CKD (chronic kidney disease): Status: Acute Category: Medical Code(s): N18.9 - Chronic kidney disease, unspecified (5) Adult failure to thrive: Status: Acute Category: Medical Code(s): R62.7 - Adult failure to thrive (6) Dementia: Status: Acute Category: Medical Code(s): F03.90 - Unspecified dementia, unspecified severity, without behavioral disturbance, psychotic disturbance, mood disturbance, and anxiety Plan Assessment: This is an 79-year-old male who is being admitted for adult failure to thrive secondary to severe impaired mobility as well as a new pleural effusion. On my exam, patient is lying in bed in no acute distress. No complaints at this time. [facility]. [facility] Severe impaired mobility -Patient is having difficulty completing activities of daily living -Consult PT -Consult case management for discharge planning Pleural effusion -Secondary to CHF? -Dr. Blanca consulted, will see the patient tomorrow to discuss diagnostic thoracentesis versus conservative management -Patient appears euvolemic, will hold off on additional diuretics at this time HFpEF -Last echo done in 05/2023 showed a LVEF of 55% with grade 1 diastolic dysfunction, [facility] as [facility] shows a more recent echo done in November -Pt was taken off of torsemide during last admission 2/2 orthostatic hypotension -Takes eplerenone which we do not have on formulary -1500cc fluid restriction -strick I&Os -TTE pending for the morning CAD s/p CABG in 2001 -Continue aspirin/statin daily -Heart healthy diet Type 2 diabetes -SSI for glycemic control -a1c -carb consistent diet -holding metformin while inpatient Parkinson's Disease Dementia -continue carbidopa/levodopa -continue donepizil CKD stage 3a -Pt is at his baseline creatinine, -avoid nephrotoxic medication -monitor serum BUN/creatinine HTN -Resume home medications where appropriate BPH -continue flomax DVT prophylaxis: Heparin CODE STATUS: Full code Surrogate decision maker: Ashley [phone] Skin: Moderate risk Rounded on patient after nurse practitioner. Personally examined and interviewed patient. Agree with exam findings and care plan as documented.
[2024-02-26 21:14] LABS: Troponin I < 0.01 ng/ml (0.00-0.034)
[2024-02-26] MEDS: CARBIDOPA/LEVODOPA 25/100MG TABLET 1 EACH PO (22:23)
[2024-02-26] MEDS: PAT OWN MED ***DONEPEZIL 10MG 10 MG PO (22:23)
[2024-02-26] MEDS: ATORVASTATIN 40MG TABLET 80 MG PO (22:23)
[2024-02-26] MEDS: TAMSULOSIN 0.4MG CAPSULE 0.4 MG PO (22:24)
[2024-02-26] MEDS: PREGABALIN 100MG CAPSULE 100 MG PO (22:24)
[2024-02-26] MEDS: MELATONIN 5MG TABLET 10 MG PO (22:24)
[2024-02-26] MEDS: humaLOG 100 UNITS/ML 10ML VIAL (SSI) SQ (22:36)
[2024-02-26 22:37] LABS: POC Glucose,Bedside 164 (70-110)
[2024-02-27] VITALS: BP 172/74; PULSE 70; RESP 16; TEMP 36.8; O2SAT 94
[2024-02-27 04:00] VITALS: BMI 25.1
--- NOTE | 2024-02-27 06:22 | PC.NURSE ---
Mr Mckeon was a new admit last night (02/25) at around 18:53. Daughter accompanied patient upon arrival and is his POA. Patient has a history of dementia but has been alert and oriented x4 this shift. Patient was admitted due to failure to thrive. Patient complains of pain during movement or coughing in his left ribs. Patient had multiple falls prior to his shift. Patient has not requested any pain medication or any other pain interventions this shift. He has rested quite well throughout the night. He stated this morning that he felt pretty good and was not feeling as sore as last night. Moderate tremors noticed in patient. Patient requires assistance to the bathroom and voided this shift; patient tolerated ambulation well and used a rolling walker. Patient's FSBS at 21:00 was 164; he received 2 units of Lispro insulin per sliding scale. At 06:00, his FSBS was 82. Patient's med rec was completed this shift; patient received his scheduled meds per OCT. Primidone was not given due to no availability. Patient requests to take melatonin at bedtime to help him sleep. Patient does not have any further complaints at this time. Echo is at bedside. Pulmonology consult ordered for today. Bed alarm is on. Call light is within reach.
[2024-02-27 06:24] LABS: Basophils # 0.1 K/mm3 (0-0.2); Eosinophils # 0.2 K/mm3 (0.0-0.4); Eosinophils % 4.1 % (0.1-12.0); Hematocrit 36.2 % (42.0-52.0); Lymphocytes % 17.8 % (10-50); Mean Corpuscular HGB Conc 33.2 g/dL (31.8-35.4); Mean Corpuscular Hemoglobin 30.1 pg (27.0-31.2); Mean Corpuscular Volume 90.5 fl (80-94); Mean Platelet Volume 8.9 fl (7.4-10.4); Monocytes # 0.5 K/mm3 (0.1-1.0); Monocytes % 9.9 % (1.7-9.3); Neutrophils # 3.7 K/mm3 (1.8-7.8); Neutrophils % 67.1 % (37.0-80.0); Platelet Count 168 K/mm3 (142-424); Red Cell Distribution Width 15.6 % (11.5-17.5); White Blood Count 5.5 K/mm3 (4.8-10.8)
[2024-02-27 06:28] LABS: POC Glucose,Bedside 82 (70-110)
[2024-02-27 06:59] LABS: Alanine Aminotransferase 8 U/L (12-78); Albumin Level 3.3 g/dl (3.5-5.0); Albumin/Globulin Ratio 1.2 (1.1-1.8); Alkaline Phosphatase 66 U/L (38-126); Anion Gap 8.6 mEq/L (5-15); Aspartate Amino Transferase 27 U/L (17-59); Bilirubin,Total 0.4 mg/dl (0.2-1.3); Blood Urea Nitrogen 15 mg/dl (9-20); Calcium 9.2 mg/dl (8.4-10.2); Carbon Dioxide 32 mmol/L (22.0-30.0); Chloride 103 mmol/L (98-107); Creatinine Clearance Estimated 66 mL/min (50-200); Estimated Glomerular Filt Rate 72 ml/min (>60); GFR (African American) 87 ML/MIN (>60); Globulin 2.7 g/dL (1.3-3.2); Glucose 95 mg/dl (74-100); Magnesium 1.6 mg/dl (1.6-2.3); Potassium 4.6 mmoL/L (3.5-5.1); Sodium 139 mmol/L (136-145)
[2024-02-27 08:00] VITALS: BP 135/72; PULSE 75; RESP 17; TEMP 36.6; O2SAT 90
--- NOTE | 2024-02-27 08:02 | EXP.ACUTE.PN ---
Subjective *Date: 02/27/24 *Time: 08:02 Medical Exam Vital signs and Labs for Last 24 Hours: Vital Signs Temp Pulse Pulse Resp BP BP Pulse Ox 02/27/24 06:45 02/27/24 05:00 02/27/24 03:00 02/27/24 01:00 02/27/24 00:00 98.3 F 70 16 172/74 H 94 L 02/26/24 23:00 02/26/24 21:00 02/26/24 20:00 02/26/24 19:06 98.2 F 75 18 170/98 H 90 L 02/26/24 19:00 02/26/24 18:51 97.8 F 69 18 196/98 H 02/26/24 18:01 196/98 H 02/26/24 17:01 175/95 H 02/26/24 14:11 69 103/71 L 98 02/26/24 14:00 65 97 02/26/24 13:41 97.8 F 65 18 104/81 L 94 L O2 Del Method 02/27/24 06:45 Room Air 02/27/24 05:00 Room Air 02/27/24 03:00 Room Air 02/27/24 01:00 Room Air 02/27/24 00:00 Room Air 02/26/24 23:00 Room Air 02/26/24 21:00 Room Air 02/26/24 20:00 Room Air 02/26/24 19:06 Room Air 02/26/24 19:00 Room Air 02/26/24 18:51 Room Air 02/26/24 18:01 02/26/24 17:01 02/26/24 14:11 02/26/24 14:00 02/26/24 13:41 Room Air Intake and Output 02/26/24 02/27/24 02/27/24 23:59 07:59 15:59 Intake Total 100 / 100 Output Total 0 / 0 0 / 0 Balance 0 / 100 100 / 100 Intake: Intake, Oral Amount 100 / 100 Output: Output, Urine Amount 0 / 0 0 / 0 Other: Number of Unmeasured Voids 1 1 Weight 79.464 kg 79.549 kg Patient Weight 02/27/24 23:59 Weight 79.549 kg Laboratory Results - last 24 hr 02/26/24 14:31: WBC 6.8, RBC 4.32 L, Hgb 12.8 L, Hct 39.7 L, MCV 92.0, MCH 29.5, MCHC 32.1, RDW 15.5, Plt Count 168, MPV 8.9, Neut % (Auto) 75.1, Lymph % (Auto) 13.8, [place] % (Auto) 7.1, Eos % (Auto) 3.3, Baso % (Auto) 0.7, Neut # (Auto) 5.1, Lymph # (Auto) 0.9, [place] # (Auto) 0.5, Eos # (Auto) 0.2, Baso # (Auto) 0.1, PT 10.6, INR 0.94, Sodium 139, Potassium 5.0, Chloride 104, Carbon Dioxide 30, Anion Gap 10.0, BUN 21 H, Creatinine 1.30 H, Estimated Creat Clear 51, Estimated GFR 53 L, Est GFR ( Amer) 64, Glucose 141 H, Calcium 9.3, Magnesium 1.7, Total Bilirubin 0.3, AST 37, ALT 16, Alkaline Phosphatase 70, Troponin I < 0.01, NT-Pro-B Natriuret Pep 803 H, Total Protein 6.5, Albumin 3.6, Globulin 2.9, Albumin/Globulin Ratio 1.2 02/26/24 17:31: Troponin I < 0.01 02/26/24 20:45: Troponin I < 0.01 02/26/24 22:29: POC Glucose 164 H 02/27/24 05:52: WBC 5.5, RBC 4.00 L, Hgb 12.0 L, Hct 36.2 L, MCV 90.5, MCH 30.1, MCHC 33.2, RDW 15.6, Plt Count 168, MPV 8.9, Neut % (Auto) 67.1, Lymph % (Auto) 17.8, [place] % (Auto) 9.9 H, Eos % (Auto) 4.1, Baso % (Auto) 1.0, Neut # (Auto) 3.7, Lymph # (Auto) 1.0, [place] # (Auto) 0.5, Eos # (Auto) 0.2, Baso # (Auto) 0.1, Sodium 139, Potassium 4.6, Chloride 103, Carbon Dioxide 32 H, Anion Gap 8.6, BUN 15 D, Creatinine 1.00 D, Estimated Creat Clear 66, Estimated GFR 72, Est GFR ( Amer) 87 D, Glucose 95 D, Calcium 9.2, Magnesium 1.6, Total Bilirubin 0.4, AST 27 D, ALT 8 L D, Alkaline Phosphatase 66, Total Protein 6.0 L, Albumin 3.3 L, Globulin 2.7, Albumin/Globulin Ratio 1.2 02/27/24 06:20: POC Glucose 82 I & O for Labs for Last 24 Hours: Intake & Output 02/24/24 02/25/24 02/26/24 02/27/24 23:59 23:59 23:59 23:59 Intake Total 100 / 100 Output Total 0 / 0 0 / 0 Balance 0 / 100 100 / 100 Weight 79.464 kg 79.549 kg
[2024-02-27 08:19] LABS: Hemoglobin A1C 5.4 % (4.0-6.0)
--- NOTE | 2024-02-27 08:33 | P.CONPHA_ITS ---
Pharmacy Intervention Comments: MEDICATION RECONCILIATION COMPLETED ON PATIENT BY CALLING [facility] FOR LIST. -ASHLIE NAYAK, ANNAD
--- NOTE | 2024-02-27 08:33 | HMH.PHAINT1 ---
Pharmacy Intervention Comments: MEDICATION RECONCILIATION COMPLETED ON PATIENT BY CALLING [facility] FOR LIST. -ASHLIE NAYAK, ANNAD
[2024-02-27] MEDS: CARBIDOPA/LEVODOPA 25/100MG TABLET 1 EACH PO ×2 (09:23→12:02)
[2024-02-27] MEDS: ASPIRIN 81MG CHEWABLE TABLET 81 MG PO (09:23)
[2024-02-27] MEDS: METOPROLOL SUCCINATE XL 50MG TABLET 50 MG PO (09:23)
[2024-02-27] MEDS: HEPARIN SODIUM 5,000 UNIT/ML VIAL 5000 UNIT SQ (09:23)
[2024-02-27] MEDS: TORSEMIDE 20MG TABLET 40 MG PO (09:23)
--- NOTE | 2024-02-27 09:41 | P.CONS_ITS ---
History of Present Illness History of present illness: Mr. Mckeon is a 79-year-old male with reported medical history hypertension CAD status post CABG in 2001, CVA with residual right-sided weakness, CHF, dementia presented to the ER with mechanical fall. He has greater than 57-[id number] smoking history, last made more than 30 years ago. Not using any inhalers at baseline. Patient denies any worsening respiratory distress. Denies any cough or any productive phlegm. Predominant complaint including worsening balance and frequent falls. [facility] Disclaimer: The information contained in this section may have been updated after the patient was seen, as this information can be updated by other users. Medical History (Updated 02/27/24 @ 12:11 by Sav Trujillo MD) Dyspnea on exertion History of heart attack (~2000) CVA (cerebral vascular accident) Surgical History (Updated 02/26/24 @ 20:26 by Trini Carcamo RN) History of open heart surgery Family History (Updated 02/26/24 @ 20:36 by Trini Carcamo, RN) Mother History of open heart surgery Father History of open heart surgery Social History (Updated 02/26/24 @ 20:38 by Trini Carcamo, RN) Smoking Status: Former smoker alcohol intake: never current occupational status: retired Travel in the last 8 weeks: None Review of Systems Constitutional Constitutional: Reports anorexia, Reports body ache(s), Reports fatigue and Reports frequent falls Eyes Eyes: Denies eye discharge, Denies dry eyes, Denies irritation and Denies itchy eyes ENT Ears, Nose, Mouth, and Throat: Denies epistaxis, Denies facial pain, Denies lip swelling and Denies throat swelling *Cardiovascular Cardiovascular: Reports dyspnea on exertion *Respiratory Respiratory: Reports chest congestion, Reports cough, Reports dyspnea on exertion, Denies excessive phlegm production, Denies hemoptysis, Denies pain on inspiration, Denies pain with cough and Denies wheezing *Gastrointestinal Gastrointestinal: Denies abdominal pain, Denies belching and Denies cramping *Musculoskeletal Musculoskeletal: Reports back pain, Reports myalgias and Reports other (No small joint swelling or Pain) *Neurologic Neurologic: Reports confusion, Reports frequent falls and Reports memory loss Psychiatric Psychiatric: Reports confusion, Denies homicidal ideation, Reports memory loss and Denies suicidal ideation Endocrine Endocrine: Reports fatigue and Denies heat intolerance Hematologic/Lymphatic Hematologic/Lymphatic: Denies easy bleeding and Denies lymphadenopathy Allergic/Immunologic Allergic/Immunologic: Denies itchy eyes, Denies lip swelling, Denies throat swelling and Denies wheezing Pulmonology Exam Inpatient Vital signs and Labs for Last 24 Hours: Temp Pulse Resp BP Pulse Ox O2 Del Method 97.9 F 75 17 135/72 90 L Room Air 02/27/24 08:00 02/27/24 08:00 02/27/24 08:00 02/27/24 08:00 02/27/24 08:00 02/27/24 09:00 Laboratory Results - last 24 hr 02/26/24 14:31: WBC 6.8, RBC 4.32 L, Hgb 12.8 L, Hct 39.7 L, MCV 92.0, MCH 29.5, MCHC 32.1, RDW 15.5, Plt Count 168, MPV 8.9, Neut % (Auto) 75.1, Lymph % (Auto) 13.8, [place] % (Auto) 7.1, Eos % (Auto) 3.3, Baso % (Auto) 0.7, Neut # (Auto) 5.1, Lymph # (Auto) 0.9, [place] # (Auto) 0.5, Eos # (Auto) 0.2, Baso # (Auto) 0.1, PT 10.6, INR 0.94, Sodium 139, Potassium 5.0, Chloride 104, Carbon Dioxide 30, Anion Gap 10.0, BUN 21 H, Creatinine 1.30 H, Estimated Creat Clear 51, Estimated GFR 53 L, Est GFR ( Amer) 64, Glucose 141 H, Calcium 9.3, Magnesium 1.7, Total Bilirubin 0.3, AST 37, ALT 16, Alkaline Phosphatase 70, Troponin I < 0.01, NT-Pro-B Natriuret Pep 803 H, Total Protein 6.5, Albumin 3.6, Globulin 2.9, Albumin/Globulin Ratio 1.2 02/26/24 17:31: Troponin I < 0.01 02/26/24 20:45: Troponin I < 0.01 02/26/24 22:29: POC Glucose 164 H 02/27/24 05:52: WBC 5.5, RBC 4.00 L, Hgb 12.0 L, Hct 36.2 L, MCV 90.5, MCH 30.1, MCHC 33.2, RDW 15.6, Plt Count 168, MPV 8.9, Neut % (Auto) 67.1, Lymph % (Auto) 17.8, [place] % (Auto) 9.9 H, Eos % (Auto) 4.1, Baso % (Auto) 1.0, Neut # (Auto) 3.7, Lymph # (Auto) 1.0, [place] # (Auto) 0.5, Eos # (Auto) 0.2, Baso # (Auto) 0.1, Sodium 139, Potassium 4.6, Chloride 103, Carbon Dioxide 32 H, Anion Gap 8.6, BUN 15 D, Creatinine 1.00 D, Estimated Creat Clear 66, Estimated GFR 72, Est GFR ( Amer) 87 D, Glucose 95 D, Hemoglobin A1c 5.4, Calcium 9.2, Magnesium 1.6, Total Bilirubin 0.4, AST 27 D, ALT 8 L D, Alkaline Phosphatase 66, Total Protein 6.0 L, Albumin 3.3 L, Globulin 2.7, Albumin/Globulin Ratio 1.2 02/27/24 06:20: POC Glucose 82 I & O for Labs for Last 24 Hours: Intake & Output 02/24/24 02/25/24 02/26/24 02/27/24 23:59 23:59 23:59 23:59 Intake Total 460 / 460 Output Total 0 / 0 0 / 0 Balance 0 / 100 460 / 460 Weight 175 lb 3 oz 175 lb 6 oz Constitutional: Present mild distress Head: Present normocephalic and atraumatic ENT: Present normal exam, normal oropharynx and mucous membranes moist Neck: Present normal inspection and full ROM Respiratory: Present decreased breath sounds and able to speak in complete sentences; Absent respiratory distress, wheezes or crackles Cardiac: Present S1/S2, Tachycardia and radial pulses present GI: Present soft and distention; Absent tenderness or guarding Skin: Present intact; Absent cyanosis or jaundice Neuro: Present alert, awake and oriented x 3 Extremities: Present normal inspection; Absent clubbing or cyanosis Psychiatric: Present normal affect and cooperative Meds Home Medications and Allergies Home Medications Medication Instructions Recorded Confirmed Type aspirin 81 mg tablet,delayed 81 mg PO DAILY 02/27/24 02/27/24 History release atorvastatin 80 mg tablet 80 mg PO DAILY 02/27/24 02/27/24 History carbidopa 25 mg-levodopa 100 mg 1 tab PO TID 02/27/24 02/27/24 History tablet cholecalciferol (vitamin D3) 25 25 mcg PO DAILY 02/27/24 02/27/24 History mcg (1,000 unit) tablet donepezil 10 mg tablet 10 mg PO DAILY 02/27/24 02/27/24 History doxepin 25 mg capsule 25 mg PO HS 02/27/24 02/27/24 History duloxetine 60 mg capsule,delayed 60 mg PO DAILY 02/27/24 02/27/24 History release empagliflozin 5 mg-metformin ER 1 tab PO DAILY 02/27/24 02/27/24 History 1,000 mg tablet,extended release 24 hr eplerenone 25 mg tablet (Inspra) 25 mg PO DAILY 02/27/24 02/27/24 History finasteride 5 mg tablet 5 mg PO DAILY 02/27/24 02/27/24 History loratadine 10 mg tablet 10 mg PO DAILYP PRN Allergy 02/27/24 02/27/24 History Symptoms magnesium oxide 420 mg tablet 420 mg PO TID 02/27/24 02/27/24 History melatonin 3 mg capsule 9 mg PO HS 02/27/24 02/27/24 History metoprolol succinate 100 mg 50 mg PO DAILY 02/27/24 02/27/24 History tablet,extended release 24 hr pantoprazole 20 mg tablet,delayed 20 mg PO DAILY 02/27/24 02/27/24 History release pregabalin 100 mg capsule 100 mg PO HS 02/27/24 02/27/24 History primidone 50 mg tablet 75 mg PO HS 02/27/24 02/27/24 History tamsulosin 0.4 mg capsule 0.4 mg PO BID 02/27/24 02/27/24 History torsemide 20 mg tablet 20 mg PO DAILY 02/27/24 02/27/24 History valproic acid 250 mg capsule 500 mg PO DAILY 02/27/24 02/27/24 History valproic acid 250 mg capsule 750 mg PO HS 02/27/24 02/27/24 History New Prescriptions to Start Prescriptions: Allergies Allergy/AdvReac Type Severity Reaction Status Date / Time egg AdvReac Diarrhea Verified 02/26/24 20:05 Results Laboratory Findings 02/27/24 05:52 02/27/24 05:52 PT/INR, D-dimer PT 10.6 seconds (10.1-12.5) 02/26/24 14:31 INR 0.94 (0.9-1.1) 02/26/24 14:31 Abnormal lab findings: Abnormal Labs 02/26/24 02/26/24 02/27/24 14:31 22:29 05:52 RBC 4.32 L 4.00 L Hgb 12.8 L 12.0 L Hct 39.7 L 36.2 L [place] % (Auto) 9.9 H Carbon Dioxide 32 H BUN 21 H Creatinine 1.30 H Estimated GFR 53 L Glucose 141 H POC Glucose 164 H ALT 8 L D NT-Pro-B Natriuret Pep 803 H Total Protein 6.0 L Albumin 3.3 L Assessment and Plan *Assessment and plan (1) Pleural effusion: Status: Acute Category: Medical Code(s): J90 - Pleural effusion, not elsewhere classified (2) Dyspnea on exertion: Status: Acute Category: Medical Code(s): R06.09 - Other forms of dyspnea Plan Mr. Mckeon is a 79-year-old male with reported medical history hypertension CAD status post CABG in 2001, CVA with residual right-sided weakness, CHF, dementia presented to the ER with mechanical fall. He has greater than [id number] smoking history, last made more than 30 years ago. Not using any inhalers at baseline. Patient presented to the [place] last week during which she was told to have rib fractures and small left pleural effusion. CT chest from [place] reported to have sixth seventh and eighth rib fractures posteriorly nondisplaced along with left pleural effusion. CT chest on admission at [facility] did not show any obvious evidence of rib fractures. Effusion noted less likely hematoma. However given concerns we will follow-up with diagnostic tap. CT chest also showed emphysematous changes. Patient denies any worsening respiratory distress. Denies any cough or any productive phlegm. Predominant complaint including worsening balance and frequent falls. Plan: -Plan for diagnostic thoracentesis, if hematoma proceed with chest tube placement -DuoNebs every 6 hours on as-needed basis next
--- NOTE | 2024-02-27 09:47 | CARE MANAGER ---
[facility] was aware [facility] yesterday. Called this morning and still have no beds.
[2024-02-27 10:29] LABS: POC Glucose,Bedside 140 (70-110)
[2024-02-27] MEDS: VALPROIC ACID 250 MG 2 EACH PO (12:02)
--- NOTE | 2024-02-27 13:27 | PC.NURSE ---
Fluid removed by MD to left upper back and sent to lab. Band-aid placed c/d/i.
[2024-02-27 14:23] LABS: Lactate Dehydrogenase 161 U/L (313-618)
--- NOTE | 2024-02-27 14:41 | EXP.DC.SUM ---
General Admission date:: 02/26/24 Discharge date: 02/27/24 HPI HPI HPI: Sharad Mckeon is an 79-year-old male past medical history significant for HTN, CAD status post CABG in 2001, CVA with right-sided deficits, CHF who presents emergency room today with complaints of mechanical fall. Mr. Mckeon has had a few falls over the last several weeks. Most recently fell a few days ago onto the left side and has been having some left-sided rib pain. Did not hit his head at that time, denies any LOC, denies neck or back pain. Tells me that he went to the [place] and they diagnosed him with 3 left-sided rib fractures. Patient lives at home with his daughter. Tells me that he has to use a rollator walker to get around. Reports he tripped and fell a couple of days ago, did not lose consciousness, no dizziness or lightheadedness noted before the fall. Left-sided rib pain is worse with inspiration. Patient denies any fever, cough, chest pain, abdominal pain. No focal neurodeficits. No recent weight gain or weight loss, no swelling in his legs or feet. Daughter was concerned about patient returning home, reports that he has been getting weaker over the last several weeks and has been unable to complete activities of daily living. Denies tobacco use, alcohol use, illicit drug use. Does not take any blood thinners. Does take a 81 mg aspirin daily. Lab work in the ER showed an elevated BUN and creatinine of 21 and 1.3. BNP elevated to 803. CTA of the chest shows a moderate left pleural effusion. All other imaging was nonactionable.Dr. Blanca was consulted, will see the patient in consult tomorrow to discuss doing a diagnostic thoracentesis if needed. He will be noted to the hospitalist service for severe impaired mobility, adult failure to thrive, and a new pleural effusion. Hospital Course Hospital Course Hospital Course: This is an 79-year-old male who is being admitted for adult failure to thrive secondary to severe impaired mobility as well as a new pleural effusion. On my exam, patient is lying in bed in no acute distress. No complaints at this time. Records obtained from the [place] to verify medications. Monitored overnight. Evaluated by therapy. Case management consulted to assist with placement recommendations. Thoracentesis performed, does not appear to be hemothorax. Stable to discharge home with close follow-up with pulmonology as an outpatient. Further management with [facility] to [facility] Stable to discharge home with family. Problems addressed as follows: Adult failure to thrive Severe impaired mobility -Patient is having difficulty completing activities of daily living. Likely secondary to his progressing conditions including dementia and Parkinson's along with advanced age. Therapy consulted. Will work on placement to a [place] rehab facility from home. Pleural effusion -Secondary to CHF versus trauma. Dr. Trujillo consulted, bedside thoracentesis performed for diagnostics. Not frankly bloody. Fluid studies ordered. As it does not appear to be hemothorax, stable to discharge home. With close follow-up with pulmonology for further management. HFpEF -Last echo done in 05/2023 showed a LVEF of 55% with grade 1 diastolic dysfunction, [facility] as [facility] shows a more recent echo done in November. Pt was taken off of torsemide during last admission 2/2 orthostatic hypotension. Resume home regimen at discharge. CAD s/p CABG in 2001: Continue aspirin/statin daily. Type 2 diabetes: A1c 5.4. Monitored during admission. Held metformin. Resume at discharge. Diabetic diet. Parkinson's Disease Dementia -continue carbidopa/levodopa; continue donepizil CKD stage 3a: Pt is at his baseline creatinine HTN: Continue home metoprolol succinate 50 mg daily, torsemide 20 mg daily. BPH: continue flomax Total time spent on discharge 32 minutes in counseling, documentation, chart review, and direct care with patient. Exam Data for Last 24 hours Vital signs and Labs for Last 24 Hours: Temp Pulse Resp BP Pulse Ox O2 Del Method 97.9 F 75 17 135/72 90 L Room Air 02/27/24 08:00 02/27/24 08:00 02/27/24 08:00 02/27/24 08:00 02/27/24 08:00 02/27/24 14:40 Laboratory Results - last 24 hr 02/26/24 14:31: WBC 6.8, RBC 4.32 L, Hgb 12.8 L, Hct 39.7 L, MCV 92.0, MCH 29.5, MCHC 32.1, RDW 15.5, Plt Count 168, MPV 8.9, Neut % (Auto) 75.1, Lymph % (Auto) 13.8, [place] % (Auto) 7.1, Eos % (Auto) 3.3, Baso % (Auto) 0.7, Neut # (Auto) 5.1, Lymph # (Auto) 0.9, [place] # (Auto) 0.5, Eos # (Auto) 0.2, Baso # (Auto) 0.1, PT 10.6, INR 0.94, Sodium 139, Potassium 5.0, Chloride 104, Carbon Dioxide 30, Anion Gap 10.0, BUN 21 H, Creatinine 1.30 H, Estimated Creat Clear 51, Estimated GFR 53 L, Est GFR ( Amer) 64, Glucose 141 H, Calcium 9.3, Magnesium 1.7, Total Bilirubin 0.3, AST 37, ALT 16, Alkaline Phosphatase 70, Troponin I < 0.01, NT-Pro-B Natriuret Pep 803 H, Total Protein 6.5, Albumin 3.6, Globulin 2.9, Albumin/Globulin Ratio 1.2 02/26/24 17:31: Troponin I < 0.01 02/26/24 20:45: Troponin I < 0.01 02/26/24 22:29: POC Glucose 164 H 02/27/24 05:52: WBC 5.5, RBC 4.00 L, Hgb 12.0 L, Hct 36.2 L, MCV 90.5, MCH 30.1, MCHC 33.2, RDW 15.6, Plt Count 168, MPV 8.9, Neut % (Auto) 67.1, Lymph % (Auto) 17.8, [place] % (Auto) 9.9 H, Eos % (Auto) 4.1, Baso % (Auto) 1.0, Neut # (Auto) 3.7, Lymph # (Auto) 1.0, [place] # (Auto) 0.5, Eos # (Auto) 0.2, Baso # (Auto) 0.1, Sodium 139, Potassium 4.6, Chloride 103, Carbon Dioxide 32 H, Anion Gap 8.6, BUN 15 D, Creatinine 1.00 D, Estimated Creat Clear 66, Estimated GFR 72, Est GFR ( Amer) 87 D, Glucose 95 D, Hemoglobin A1c 5.4, Calcium 9.2, Magnesium 1.6, Total Bilirubin 0.4, AST 27 D, ALT 8 L D, Alkaline Phosphatase 66, Total Protein 6.0 L, Albumin 3.3 L, Globulin 2.7, Albumin/Globulin Ratio 1.2 02/27/24 06:20: POC Glucose 82 02/27/24 08:52: Lactate Dehydrogenase 161 L 02/27/24 10:22: POC Glucose 140 H I & O for Last 24 hours: Intake & Output 02/24/24 02/25/24 02/26/24 02/27/24 23:59 23:59 23:59 23:59 Intake Total 820 / 820 Output Total 0 / 0 0 / 0 Balance 0 / 100 820 / 820 Weight 79.464 kg 79.549 kg Constitutional Constitutional: no acute distress, average body habitus, chronically ill appearing and cooperative *Routine HEENT Exam Head: Present normocephalic Eye: Present EOMI and PERRL ENT: Present mucous membranes moist *Routine Neck Exam Neck: Present supple; Absent lymphadenopathy *Routine Respiratory Exam Respiratory: Present CTA bilaterally; Absent rhonchi, wheezes or crackles *Routine Cardiovascular Exam Cardiovascular: Present RRR *Routine Abdominal Exam Abdominal: Present soft and normoactive bowel sounds; Absent tenderness *Routine Rectal Exam Patient deferred: visual exam *Routine Exam Patient deferred: penile exam *Routine Extremities Exam Extremities: Absent cyanosis, clubbing or edema *Routine Skin Exam Skin: Present intact and warm; Absent rash *Routine Neurological Exam Neurological: Present alert, oriented X3, moving all extremities and tremors; Absent altered mental status Results Data Completed and Pending Labs on day of discharge: Labs from last 24 hours 02/27/24 02/27/24 02/27/24 10:22 08:52 06:20 WBC RBC Hgb Hct MCV MCH MCHC RDW Plt Count MPV Neut % (Auto) Lymph % (Auto) [place] % (Auto) Eos % (Auto) Baso % (Auto) Neut # (Auto) Lymph # (Auto) [place] # (Auto) Eos # (Auto) Baso # (Auto) PT INR Sodium Potassium Chloride Carbon Dioxide Anion Gap BUN Creatinine Estimated Creat Clear Estimated GFR Est GFR ( Amer) Glucose POC Glucose 140 H 82 Hemoglobin A1c Calcium Magnesium Total Bilirubin AST ALT Alkaline Phosphatase Lactate Dehydrogenase 161 L Troponin I NT-Pro-B Natriuret Pep Total Protein Albumin Globulin Albumin/Globulin Ratio 02/27/24 02/26/24 02/26/24 05:52 22:29 20:45 WBC 5.5 RBC 4.00 L Hgb 12.0 L Hct 36.2 L MCV 90.5 MCH 30.1 MCHC 33.2 RDW 15.6 Plt Count 168 MPV 8.9 Neut % (Auto) 67.1 Lymph % (Auto) 17.8 Penning[place] % (Auto) 9.9 H Eos % (Auto) 4.1 Baso % (Auto) 1.0 Neut # (Auto) 3.7 Lymph # (Auto) 1.0 [place] # (Auto) 0.5 Eos # (Auto) 0.2 Baso # (Auto) 0.1 PT INR Sodium 139 Potassium 4.6 Chloride 103 Carbon Dioxide 32 H Anion Gap 8.6 BUN 15 D Creatinine 1.00 D Estimated Creat Clear 66 Estimated GFR 72 Est GFR ( Amer) 87 D Glucose 95 D POC Glucose 164 H Hemoglobin A1c 5.4 Calcium 9.2 Magnesium 1.6 Total Bilirubin 0.4 AST 27 D ALT 8 L D Alkaline Phosphatase 66 Lactate Dehydrogenase Troponin I < 0.01 NT-Pro-B Natriuret Pep Total Protein 6.0 L Albumin 3.3 L Globulin 2.7 Albumin/Globulin Ratio 1.2 02/26/24 02/26/24 17:31 14:31 WBC 6.8 RBC 4.32 L Hgb 12.8 L Hct 39.7 L MCV 92.0 MCH 29.5 MCHC 32.1 RDW 15.5 Plt Count 168 MPV 8.9 Neut % (Auto) 75.1 Lymph % (Auto) 13.8 [place] % (Auto) 7.1 Eos % (Auto) 3.3 Baso % (Auto) 0.7 Neut # (Auto) 5.1 Lymph # (Auto) 0.9 [place] # (Auto) 0.5 Eos # (Auto) 0.2 Baso # (Auto) 0.1 PT 10.6 INR 0.94 Sodium 139 Potassium 5.0 Chloride 104 Carbon Dioxide 30 Anion Gap 10.0 BUN 21 H Creatinine 1.30 H Estimated Creat Clear 51 Estimated GFR 53 L Est GFR ( Amer) 64 Glucose 141 H POC Glucose Hemoglobin A1c Calcium 9.3 Magnesium 1.7 Total Bilirubin 0.3 AST 37 ALT 16 Alkaline Phosphatase 70 Lactate Dehydrogenase Troponin I < 0.01 < 0.01 NT-Pro-B Natriuret Pep 803 H Total Protein 6.5 Albumin 3.6 Globulin 2.9 Albumin/Globulin Ratio 1.2 DS: Diagnosis Discharge Diagnosis (1) Pleural effusion: Status: Acute Code(s): J90 - Pleural effusion, not elsewhere classified (2) Dyspnea on exertion: Status: Acute Code(s): R06.09 - Other forms of dyspnea Meds Home Medications and Allergies Home Medications Medication Instructions Recorded Confirmed Type aspirin 81 mg tablet,delayed 81 mg PO DAILY 02/27/24 02/27/24 History release atorvastatin 80 mg tablet 80 mg PO DAILY 02/27/24 02/27/24 History carbidopa 25 mg-levodopa 100 mg 1 tab PO TID 02/27/24 02/27/24 History tablet cholecalciferol (vitamin D3) 25 25 mcg PO DAILY 02/27/24 02/27/24 History mcg (1,000 unit) tablet donepezil 10 mg tablet 10 mg PO DAILY 02/27/24 02/27/24 History doxepin 25 mg capsule 25 mg PO HS 02/27/24 02/27/24 History duloxetine 60 mg capsule,delayed 60 mg PO DAILY 02/27/24 02/27/24 History release empagliflozin 5 mg-metformin ER 1 tab PO DAILY 02/27/24 02/27/24 History 1,000 mg tablet,extended release 24 hr eplerenone 25 mg tablet (Inspra) 25 mg PO DAILY 02/27/24 02/27/24 History finasteride 5 mg tablet 5 mg PO DAILY 02/27/24 02/27/24 History hydrocodone 5 mg-acetaminophen 325 1 tab PO Q8H PRN pain 3 days #9 02/27/24 Rx mg tablet tabs loratadine 10 mg tablet 10 mg PO DAILYP PRN Allergy 02/27/24 02/27/24 History Symptoms magnesium oxide 420 mg tablet 420 mg PO TID 02/27/24 02/27/24 History melatonin 3 mg capsule 9 mg PO HS 02/27/24 02/27/24 History metoprolol succinate 100 mg 50 mg PO DAILY 02/27/24 02/27/24 History tablet,extended release 24 hr pantoprazole 20 mg tablet,delayed 20 mg PO DAILY 02/27/24 02/27/24 History release pregabalin 100 mg capsule 100 mg PO HS 02/27/24 02/27/24 History primidone 50 mg tablet 75 mg PO HS 02/27/24 02/27/24 History tamsulosin 0.4 mg capsule 0.4 mg PO BID 02/27/24 02/27/24 History torsemide 20 mg tablet 20 mg PO DAILY 02/27/24 02/27/24 History valproic acid 250 mg capsule 500 mg PO DAILY 02/27/24 02/27/24 History valproic acid 250 mg capsule 750 mg PO HS 02/27/24 02/27/24 History New Prescriptions to Start Prescriptions: hydrocodone-acetaminophen Derek Hines Allergies Allergy/AdvReac Type Severity Reaction Status Date / Time egg AdvReac Diarrhea Verified 02/26/24 20:05 Discharge Plan Disposition Patient Disposition: Home, Self-Care Condition: Fair Follow up Plan Follow up with: Sav Trujillo MD [Physician] - 03/18/24 1:15 pm () Prescriptions/Medication Reconciliation: New hydrocodone-acetaminophen 5-325 mg tablet 1 tab PO Q8H PRN (Reason: pain) 3 Days Qty: 9 0RF Continued atorvastatin 80 mg Tablet 80 mg PO DAILY magnesium oxide 420 mg Tablet 420 mg PO TID torsemide 20 mg Tablet 20 mg PO DAILY doxepin 25 mg Capsule 25 mg PO HS donepezil 10 mg Tablet 10 mg PO DAILY metoprolol succinate 100 mg Tablet Extended Release 24 Hr 50 mg PO DAILY valproic acid 250 mg Capsule 500 mg PO DAILY valproic acid 250 mg Capsule 750 mg PO HS aspirin 81 mg Tablet,Delayed Release (Dr/Ec) 81 mg PO DAILY pantoprazole 20 mg Tablet,Delayed Release (Dr/Ec) 20 mg PO DAILY tamsulosin 0.4 mg Capsule 0.4 mg PO BID carbidopa-levodopa 25-100 mg Tablet 1 tab PO TID finasteride 5 mg Tablet 5 mg PO DAILY loratadine 10 mg Tablet 10 mg PO DAILYP PRN (Reason: Allergy Symptoms) eplerenone [Inspra] 25 mg Tablet 25 mg PO DAILY duloxetine 60 mg Capsule,Delayed Release(Dr/Ec) 60 mg PO DAILY pregabalin 100 mg Capsule 100 mg PO HS cholecalciferol (vitamin D3) 25 mcg (1,000 unit) Tablet 25 mcg PO DAILY empagliflozin-metformin 5-1,000 mg Tablet, Ir - Er, Biphasic 24hr 1 tab PO DAILY melatonin 3 mg Capsule 9 mg PO HS primidone 50 mg Tablet 75 mg PO HS Problem Reconciliation Problems Reviewed?: Yes Patient Discharge Instructions ACTIVITY: Continue current activity DIET: continue same diet Patient Instructions: DI for Thoracentesis, How to Prevent Falls, DI for Surgical Site Infection, DI for Failure to Thrive, DI for Muscle Weakness Providers Primary Care Provider: Provider,Referral Admit Provider: Derek Hines Attending Provider: Derek Hines
--- NOTE | 2024-02-27 18:12 | CA_ITS ---
APPROVED REPORT EXAM: Comprehensive 2D, Doppler, and color-flow Echocardiogram Bricklayer: Gabriella Marrero CRT Ht: 5 ft 10 in Wt: 175lbs BSA: 1.97 BP: 103/71 mmHg Indications: Chest Pain, Congestive Heart Failure, Diabetes, Hyperlipidemia, Hypertension/HDD, 3 broken ribs, CABG 2001, CVA, Left pleural effusion, 06/03 [facility] 2D Dimensions Left Atrium 4.14 cm LA Volume 60.70 mL LVOT 1.88 cm (M/F) 1.5-2.5 LA Volume Index 30.80 mL/m2 (M/F) 16-34 M-Mode Dimensions RVDd 3.01 cm (0.9-2.6) LVDd 4.62 cm (3.5-5.7) Ao Diam 3.55 cm (2.0-3.7) LVDs 3.33 cm (3.5-5.7) IVSd 2.18 cm (0.6-1.1) PWd 0.90 cm (0.6-1.1) EF (Teich) 54.10% FS 27.90% EDV (Teich) 98.30 mL TAPSE 2.27 (<1.7) ESV (Teich) 45.10 mL LV Diastology E Decel Time 97 (160-240 msec) E/A Ratio 0.51 MED E' 4.7 (>= 7 cm/sec) MED A' 9.70 cm/s E'/MED E' Ratio 9.43 (<= 14) LAT E' 5.4 (>= 10 cm/sec) LAT A' 8.60 cm/s E/LAT E' Ratio 8.20 (<= 14) Aortic Valve AoV Peak Fran. 119.0 (50-130 cm/s) AO Peak GR. 5.70 mmHg Mitral Valve MV E Max Fran. 44.0 (40-130 cm/s) MV A Velocity 86.0 (40-130 cm/s) E/A Ratio 0.51 MV Decel. Time 97 (160-240 ms) Tricuspid Valve TR P. Velocity 219.00 cm/s RAP Estimate 10.00 mmHg RVSP 29.20 mmHg Left Ventricle The left ventricle is normal size. The left ventricular systolic function is normal. The left ventricular ejection fraction is within the normal range. Proximal septal thickening is noted. There is normal LV segmental wall motion. Transmitral Doppler flow pattern suggests impaired LV relaxation. LVEF is 55%. Right Ventricle Right ventricle is mild dilated. Right ventricle is mildly hypokinetic. Atria The left atrium size is normal. The right atrium size is normal. There is no Doppler evidence of interatrial shunt. Aortic Valve The aortic valve is mildly thickened. There is no aortic valvular stenosis. No aortic regurgitation is present. Mitral Valve The mitral valve leaflets are mildly thickened. No evidence of mitral valve stenosis. Mild mitral valve regurgitation noted. Tricuspid Valve The tricuspid valve leaflets are thin and pliable. Trace tricuspid regurgitation. There is insufficient TR jet to estimate RVSP. Pulmonic Valve The pulmonary valve is normal in structure. Trace pulmonic regurgitation. Great Vessels The aortic root is normal in size. The ascending aorta is normal in size. IVC is normal in size and collapses >50% with inspiration. Pericardium There is no pericardial effusion. Other Information Study Quality: Technically Difficult Conclusion Technically difficult study due to poor acoustic windows. Normal LV systolic function. Mild RV dilation with mild reduction in RV function. No significant valvular stenosis or regurgitation. Electronically signed by : Vane Negron MD 03/01/2024 22:13:40
[2024-03-02 05:07] LABS: Glucose, Body Fluid 151 mg/dL (.); LD, Body Fluid 126 IU/L (.); Protein, Body Fluid 3.2 g/dL (.)
[2024-03-13 15:53] LABS: Source, Body Fld. Thoracentesis Fluid; TNC,Body Fluid 542 cells/uL (< 1000)
[2024-03-13 15:55] LABS: Appearance,Body Fld. RED/TURBID
== END 2024-02-27 16:12 | disposition home or self-care (01) ==
LOC: ER 18:24 → 2ND 18:38
PROVIDERS: Internal Medicine Pulmonary Disease; Nurse Practitioner Acute Care; Physician Assistant; Admitting Provider Internal Medicine Adolescent Medicine; Emergency Provider Emergency Medicine; Visit Provider Internal Medicine Adolescent Medicine
DX: J90 Pleural effusion, not elsewhere classified (principal); R06.09 Other forms of dyspnea; R62.7 Adult failure to thrive; I69.351 Hemiplegia and hemiparesis following cerebral infarction affecting right dominant side; I25.10 Atherosclerotic heart disease of native coronary artery without angina pectoris; Z95.1 Presence of aortocoronary bypass graft; I50.30 Unspecified diastolic (congestive) heart failure; I13.0 Hypertensive heart and chronic kidney disease with heart failure and stage 1 through stage 4 chronic kidney disease, or unspecified chronic kidney disease; F02.80 Dementia in other diseases classified elsewhere, unspecified severity, without behavioral disturbance, psychotic disturbance, mood disturbance, and anxiety; N18.31 Chronic kidney disease, stage 3a; G20.A1 Parkinson's disease without dyskinesia, without mention of fluctuations; E11.22 Type 2 diabetes mellitus with diabetic chronic kidney disease; N40.0 Benign prostatic hyperplasia without lower urinary tract symptoms; Z79.899 Other long term (current) drug therapy; W19.XXXA Unspecified fall, initial encounter; R29.6 Repeated falls
CPT/HCPCS: 32554; 36415; 70450; 70496; 70498; 71275; 72125; 72128; 72131; 74174; 80053; 82042; 82945; 82962; 83036; 83615; 83735; 83880; 84155; 84484; 85025; 85610; 87070; 87205; 88112; 88305; 89051; 93005; 93306; 97530; 99221; 99285; G0378; J0131; J1644; Q9967